=== PATIENT | female | born 1980 | race Caucasian/White ===

== ENCOUNTER 2017-05-18 08:30 | Inpatient (IN) | payer BC, MEDICAID ==
[2017-05-21] MEDS ORDERED: Rocuronium 50 MG/5 ML Vial ONE ×2 (08:29→13:51)
[2017-05-21] MEDS ORDERED: Neostigmine Methylsulfate 1 MG/ML 5 ML Syringe ONE (08:29)
[2017-05-21] MEDS ORDERED: Propofol 200 MG/20 ML SDV ONE (08:29)
[2017-05-21] MEDS ORDERED: Glycopyrrolate 0.2 MG/ML 5 ML MDV ONE (08:29)
[2017-05-21] MEDS ORDERED: Ondansetron 4 MG/2 ML SDV ONE (08:29)
[2017-05-21] MEDS ORDERED: Dexamethasone 4 MG/ML SDV ONE (08:29)
[2017-05-21] MEDS ORDERED: Succinylcholine 200 MG/10 ML MDV ONE (08:29)
[2017-05-21] MEDS ORDERED: Ketamine 500 MG/5 ML MDV IV ONE (09:00)
[2017-05-21] MEDS ORDERED: Ropivacaine 60 ML, Dexamethasone 8 MG, EPINEPHrine 0.4 MG, Sodium Chloride 0.9% 17.6 ML NERVRT SCH ×4 (09:00)
[2017-05-21] MEDS ORDERED: Lidocaine 2% 100 MG/5 ML Syringe IVPUSH ONE (09:00)
[2017-05-21] MEDS ORDERED: Scopolamine 1.5 MG Transdermal Patch TOP ONE (10:15)
[2017-05-21] MEDS ORDERED: Celecoxib 200 MG Cap PO ONE (10:15)
[2017-05-21] MEDS ORDERED: Gabapentin 300 MG Cap PO ONE (10:15)
[2017-05-21] MEDS ORDERED: Acetaminophen 500 MG Tab PO ONE (10:15)
[2017-05-21] MEDS: Dextrose 5%-Lactated Ringers 1,000 ML IV SCH ×2 (10:22→20:08)
[2017-05-21] MEDS ORDERED: Albuterol/Ipratropium 3.0-0.5 MG/3 ML Neb Soln NEB ONE (11:00)
--- NOTE | 2017-05-21 13:52 | PCM.CONS ---
H&P History of Present Illness - General Date of Service: 05/21/17 Source of Information: Patient, Family, Provider, RN Notes Reviewed History Limitations: Reports: No Limitations - History of Present Illness Initial Comments - Free Text/Narative: Ms. Perez is a 37-year-old woman who I been asked to see by Dr. Granger for further suggestions concerning management for DVT prophylaxis during the postoperative period. Ms. Perez is a known history of previous pulmonary embolism , management of which was complicated by allergic reaction to Enoxaparin. Since that episode she has been treated with warfarin. Warfarin has been held for the 2 days prior to surgery. Headache Pain Score (Numeric/FACES): 4 - Related Data Allergies/Adverse Reactions: Allergies Allergy/AdvReac Type Severity Reaction Status Date / Time enoxaparin Allergy Rash Verified 05/21/17 10:28 latex Allergy Hives Verified 06/07/13 16:15 mold Allergy Headache Verified 05/21/17 10:28 Penicillins Allergy Edema Verified 05/21/17 10:28 strawberry Allergy Hives Verified 05/21/17 10:28 Sulfa (Sulfonamide Allergy Itching Verified 05/21/17 10:28 Antibiotics) Home Medications: Home Meds Albuterol [Ventolin HFA] 2 puff INH Q6HR PRN 05/17/17 [History] Celecoxib [CeleBREX] 200 mg PO DAILY 05/17/17 [History] Furosemide 20 mg PO DAILY 05/17/17 [History] Omeprazole 20 mg PO BID 05/17/17 [History] Potassium Chloride 10 meq PO DAILY 05/17/17 [History] Venlafaxine [Effexor XR] 150 mg PO DAILY 05/17/17 [History] PEG 400/Propylene Glycol [Systane Lubricant] 1 drop EYEBOTH DAILY PRN 05/21/17 [ History] Warfarin [Coumadin] 10 mg PO DAILY 05/21/17 [History] Past Medical History HEENT History: Reports: Other (See Below) Other HEENT History: wears glasses Respiratory History: Reports: Asthma, PE, Sleep Apnea Gastrointestinal History: Reports: Colon Polyp, GERD, Hemorrhoids Musculoskeletal History: Reports: Arthritis, Back Pain, Chronic Neurological History: Reports: Headaches, Chronic, Seizure, Other (See Below) Other Neuro History: seizure after IV steroid Psychiatric History: Reports: ADHD, Anxiety, Depression, PTSD, Suicide Attempt Endocrine/Metabolic History: Reports: Obesity/BMI 30+, Other (See Below) Other Endocrine/Metabolic History: pre diabetic Hematologic History: Reports: Anemia Dermatologic History: Reports: Cellulitis - Past Surgical History GI Surgical History: Reports: Cholecystectomy, Colonoscopy, Hernia, Abdominal, Other (See Below) Other GI Surgeries/Procedures: bile leak after cholecystecomy Female Surgical History: Reports: Other (See Below) Other Female Surgeries/Procedures: left breast lump Social & Family History - Tobacco Use Smoking Status *Q: Former Smoker Years of Tobacco use: 25 Packs/Tins Daily: 0.2 Used Tobacco, but Quit: Yes Month Tobacco Last Used: May Second Hand Smoke Exposure: Yes - Caffeine Use Caffeine Use: Reports: None - Recreational Drug Use Recreational Drug Use: No H&P Review of Systems - Review of Systems: Review Of Systems: See Below General: Denies: Fever, Chills, Weakness Pulmonary: Reports: No Symptoms Cardiovascular: Reports: Dyspnea on Exertion, Edema. Denies: Chest Pain, Palpitations, Orthopnea, PND, Lightheadedness Gastrointestinal: Reports: No Symptoms Genitourinary: Reports: No Symptoms Musculoskeletal: Reports: No Symptoms Skin: Reports: No Symptoms Exam - Exam Exam: See Below - Vital Signs Vital Signs: Last Vital Signs Temp 96.8 F 05/21/17 10:24 Pulse 71 05/21/17 10:24 Resp 20 05/21/17 10:24 BP 95/55 L 05/21/17 10:24 Pulse Ox 93 L 05/21/17 10:24 Weight: 494 lb 9.6 oz - Exam General: Alert, Oriented, Cooperative Neck: Supple, Trachea Midline, +2 Carotid Pulse wo Bruit Lungs: Clear to Auscultation, Normal Respiratory Effort Cardiovascular: Regular Rate, Regular Rhythm, Normal S1, Normal S2. No: Systolic Murmur, Diastolic Murmur GI/Abdominal Exam: Normal Bowel Sounds, Soft, Non-Tender, No Organomegaly, No Distention Extremities: Non-Tender, Pedal Edema Skin: Warm, Dry, Intact - Patient Data Lab Results Last 24 hrs: Laboratory Results - last 24 hr 05/21/17 05/21/17 Range/Units 10:00 10:00 PT 12.7 H (9.5-12.0) sec INR 1.18 (0.80-1.20) Blood Type A POSITIVE Gel Antibody Screen Negative Consult PN Assessment/Plan Procedures: Procedures BLOOD TYPING SEROLOGIC ABO (05/29/16) BLOOD TYPING SEROLOGIC RH(D) (05/29/16) CT HEAD/BRAIN W/O DYE (04/09/13) EMERGENCY DEPT VISIT (06/07/13) EMERGENCY DEPT VISIT (06/07/13) PROTHROMBIN TIME (06/07/13) RBC ANTIBODY SCREEN (05/29/16) ROUTINE VENIPUNCTURE (05/29/16) Problem List Initiated/Reviewed/Updated: Yes Plan: ASSESSMENT AND RECOMMENDATIONS GASTRIC BYPASS SURGERY FOR MORBID OBESITY -Postoperative care per Dr. Granger HISTORY OF PULMONARY EMBOLI-management of which was complicated by allergic reaction to Enoxaparin which resulted in a localized as well as somewhat generalized rash. -Resume warfarin today -Hold on use of Enoxaparin and heparin because of previous allergy -Fondaparinux 10 mg subcutaneous daily starting tomorrow, hopefully this is chemically different enough so there will be no cross-reaction allergy -Monitor closely for any evidence of allergic reaction or rash Requesting Provider: TORRES Date Consult Requested: 05/21/17 Reason for Consult: History of pulmonary emboli, management of anticoagulation Patient History Reviewed: Yes Notified Requestor: Yes
[2017-05-21] MEDS: cefOXitin 2 GM in Sodium Chloride 0.9% 50 ML IV ONE ×2 (14:02→20:09)
[2017-05-21] MEDS: cefOXitin 2 GM Vial ONE ×3 (14:27→17:10)
[2017-05-21] MEDS ORDERED: Lactated Ringers 1,000 ML ONE ×2 (14:30)
[2017-05-21] MEDS ORDERED: fentaNYL 250 MCG/5 ML SDV ONE (15:13)
[2017-05-21] MEDS ORDERED: Sodium Chloride 0.9% 10 ML ONE (15:30)
[2017-05-21] MEDS ORDERED: Meropenem 500 MG SDV ONE (15:30)
[2017-05-21] MEDS ORDERED: Sugammadex Sodium 200 MG/2 ML VIAL ONE (17:47)
[2017-05-21] MEDS ORDERED: Dextrose 5%-Lactated Ringers 1,000 ML IV SCH (20:00)
[2017-05-21] MEDS ORDERED: MVI, Adult with Vitamin K 10 ML, Chromium/Copper/Mang/Selen/Zn 1 ML, Thiamine 200 MG in... IV SCH ×4 (20:00)
[2017-05-21] MEDS ORDERED: hydrOXYzine HCl 100 MG/2 ML SDV IM PRN (20:06)
[2017-05-21] MEDS: Lidocaine 0.4%/D5W 2 GM/500 ML BAG IV SCH (20:08)
[2017-05-21] MEDS ORDERED: Labetalol 20 MG/4 ML Syringe IVPUSH PRN (20:12)
[2017-05-21] MEDS: Ondansetron 4 MG/2 ML SDV IVPUSH PRN (20:14)
[2017-05-21] MEDS ORDERED: diphenhydrAMINE 50 MG/ML SDV IVPUSH PRN (20:15)
[2017-05-21] MEDS ORDERED: Gabapentin 250 MG/5 ML Solution ML 470 ML Bottle PO SCH (21:00)
[2017-05-21] MEDS: Pantoprazole 40 MG Vial IV SCH (21:50)
[2017-05-21] MEDS ORDERED: Acetaminophen Soln 650 MG/20.3 ML UD Cup ONE (21:52)
[2017-05-21] MEDS ORDERED: Albuterol/Ipratropium 3.0-0.5 MG/3 ML Neb Soln INH PRN (22:25)
[2017-05-21] MEDS: Acetaminophen Soln 160 MG/5 ML UD Cup PO SCH (22:27)
[2017-05-21] MEDS: cefOXitin 2 GM in Sodium Chloride 0.9% 50 ML IV SCH (22:41)
[2017-05-21] MEDS: Albuterol/Ipratropium 3.0-0.5 MG/3 ML Neb Soln INH SCH (22:41)
[2017-05-22] MEDS: cefOXitin 2 GM in Sodium Chloride 0.9% 50 ML IV SCH ×4 (01:30→22:00)
[2017-05-22] MEDS: Acetaminophen Soln 160 MG/5 ML UD Cup PO SCH ×2 (01:33→09:10)
[2017-05-22] MEDS ORDERED: Metoclopramide 10 MG/2 ML SDV IV SCH (02:00)
[2017-05-22] MEDS: Ondansetron 4 MG/2 ML SDV IVPUSH PRN ×2 (02:12→07:39)
[2017-05-22] MEDS: Lidocaine 0.4%/D5W 2 GM/500 ML BAG IV SCH (06:06)
[2017-05-22] MEDS: Albuterol/Ipratropium 3.0-0.5 MG/3 ML Neb Soln INH SCH ×4 (07:02→22:22)
[2017-05-22] MEDS ORDERED: Albuterol/Ipratropium 3.0-0.5 MG/3 ML Neb Soln INH PRN (07:33)
[2017-05-22] MEDS ORDERED: Cyanocobalamin (Vitamin B12) 1,000 MCG/ML SDV IM ONE (08:00)
[2017-05-22] MEDS ORDERED: Iohexol 647 MG/ML 50 ML SDV IVPUSH PRN (08:11)
[2017-05-22] MEDS ORDERED: Hypromellose 0.4% Ophth Soln 15 ML Bottle EYEBOTH PRN (08:16)
[2017-05-22] MEDS: Metoclopramide 10 MG/2 ML SDV IV SCH ×3 (08:45→22:01)
[2017-05-22] MEDS: Gabapentin 250 MG/5 ML Solution ML 470 ML Bottle PO SCH ×3 (09:00→22:22)
[2017-05-22] MEDS: Dextrose 5%-Lactated Ringers 1,000 ML IV SCH (09:06)
[2017-05-22] MEDS: Celecoxib 200 MG Cap PO SCH (09:10)
[2017-05-22] MEDS: Venlafaxine 75 MG Cap.ER PO SCH (09:11)
[2017-05-22] MEDS: Furosemide 20 MG Tab PO SCH (09:11)
--- NOTE | 2017-05-22 09:28 | CR ---
Drain within the left upper quadrant. Air-fluid levels within small bowel. No gross evidence for leak age status post María-en-Y.
[2017-05-22] MEDS: Acetaminophen Soln 650 MG/20.3 ML UD Cup PO SCH ×2 (14:22→22:01)
[2017-05-22] MEDS: HYDROmorphone 1 MG/ML Syringe IVPUSH PRN ×2 (14:22→20:45)
--- NOTE | 2017-05-22 14:35 | PCM.CONSN ---
- General Info Date of Service: 05/22/17 Subjective Update: Ms. Perez is been stable since surgery yesterday, although when seen this morning was very sleepy and lethargic. Fondaparinux has been started today for overlap therapy with warfarin. - Patient Data Vitals - Most Recent: Last Vital Signs Temp 99.8 F 05/22/17 11:00 Pulse 86 05/22/17 11:00 Resp 18 05/22/17 11:00 BP 156/79 H 05/22/17 11:00 Pulse Ox 94 L 05/22/17 11:00 Weight - Most Recent: 494 lb 9.6 oz I&O - Last 24 Hours: Intake & Output 05/21/17 05/22/17 05/22/17 22:59 06:59 14:59 Intake Total 180 2022 170 Output Total 40 2565 2075 Balance 140 -542 -1905 Lab Results Last 24 Hours: Laboratory Results - last 24 hr 05/22/17 05/22/17 Range/Units 04:35 04:35 WBC 15.7 H (4.5-11.0) K/uL RBC 4.77 (3.30-5.50) M/uL Hgb 11.7 L (12.0-15.0) g/dL Hct 38.3 (36.0-48.0) % MCV 80 (80-98) fL MCH 25 L (27-31) pg MCHC 31 L (32-36) % Plt Count 242 (150-400) K/uL Sodium 138 L (140-148) mmol/L Potassium 4.8 (3.6-5.2) mmol/L Chloride 103 (100-108) mmol/L Carbon Dioxide 28 (21-32) mmol/L Anion Gap 11.8 (5.0-14.0) mmol/L BUN 17 (7-18) mg/dL Creatinine 1.2 H (0.6-1.0) mg/dL Est Cr Clr Drug Dosing 66.20 mL/min Estimated GFR (MDRD) 50 L (>60) Glucose 154 H (74-106) mg/dL Calcium 8.6 (8.5-10.1) mg/dL Phosphorus 2.8 (2.5-4.9) mg/dL Magnesium 1.9 (1.8-2.4) mg/dL Total Bilirubin 0.6 (0.2-1.0) mg/dL AST 674 H (15-37) U/L ALT 517 H (12-78) U/L Alkaline Phosphatase 79 (46-116) U/L NT-Pro-B Natriuret Pep 299 H (5-125) pg/mL Total Protein 7.1 (6.4-8.2) g/dL Albumin 3.1 L (3.4-5.0) g/dL Globulin 4.0 H (2.3-3.5) g/dL Albumin/Globulin Ratio 0.8 L (1.2-2.2) Med Orders - Current: Current Medications Acetaminophen (Tylenol) 650 mg PO Q6H PENDING SALE TO [facility] Last Admin: 05/22/17 14:22 Dose: 650 mg Albuterol/Ipratropium (Duoneb 3.0-0.5 Mg/3 Ml) 3 ml INH QIDRT PENDING SALE TO [facility] Last Admin: 05/22/17 10:58 Dose: 3 ml Albuterol/Ipratropium (Duoneb 3.0-0.5 Mg/3 Ml) 3 ml INH ASDIRECTED PRN PRN Reason: Shortness of Breath Artificial Tears (Natural Balance Tears) 0 ml EYEBOTH ASDIRECTED PRN PRN Reason: DRY EYES Celecoxib (Celebrex) 200 mg PO DAILY PENDING SALE TO [facility] Last Admin: 05/22/17 09:10 Dose: 200 mg Diphenhydramine HCl (Benadryl) 25 - 50 mg IVPUSH Q4H PRN PRN Reason: ITCHING Fondaparinux (Arixtra) 10 mg SUBCUT Q24H PENDING SALE TO [facility] Last Admin: 05/22/17 12:51 Dose: 10 mg Furosemide (Lasix) 20 mg PO DAILY PENDING SALE TO [facility] Last Admin: 05/22/17 09:11 Dose: 20 mg Gabapentin (Neurontin) 300 mg PO TID PENDING SALE TO [facility] Last Admin: 05/22/17 14:22 Dose: 300 mg Hydromorphone HCl (Dilaudid) 1 mg IVPUSH Q1H PRN PRN Reason: Pain Last Admin: 05/22/17 14:22 Dose: 1 mg Hydroxyzine HCl (Vistaril) 75 - 100 mg IM Q4H PRN PRN Reason: UNCONTROLLED PAIN Last Admin: 05/21/17 20:22 Dose: 100 mg Lidocaine HCl/Dextrose (Lidocaine 2 Gm/D5w 500 Ml) 2 gm in 500 mls @ 30 mls/hr IV .[id number] PENDING SALE TO [facility] PRN Reason: 2 MG/MIN Stop: 05/22/17 18:00 Last Admin: 05/22/17 06:06 Dose: 2 mg/min, 30 mls/hr Cefoxitin Sodium 2 gm/ Sodium (Chloride) 50 mls @ 100 mls/hr IV Q6H PENDING SALE TO [facility] Stop: 05/23/17 14:29 Last Admin: 05/22/17 14:22 Dose: 100 mls/hr Dextrose/Lactated Ringer's (Dextrose 5%-Lactated Ringers) 1,000 mls @ 125 mls/ hr IV ASDIRECTED PENDING SALE TO [facility] Last Admin: 05/22/17 09:06 Dose: 125 mls/hr Multivitamins/Minerals 10 ml/Chromium/Copper/Manganese/Seleni/Zn 1 ml/ Thiamine HCl 200 mg/ Dextrose/Lactated Ringer's 1,013 mls @ 125 mls/hr IV DAILY@1600 PENDING SALE TO [facility] Labetalol HCl (Normodyne) 5 - 15 mg IVPUSH Q1H PRN PRN Reason: SBP>160, DBP>95, Last Admin: 05/21/17 21:58 Dose: 10 mg Metoclopramide HCl (Reglan) 10 mg IV Q6H PENDING SALE TO [facility] Last Admin: 05/22/17 08:45 Dose: 10 mg Miscellaneous Information (Remove Patch) 1 ea TRDERM Q72H PENDING SALE TO [facility] Ondansetron HCl (Zofran) 4 mg IVPUSH Q4H PRN PRN Reason: NAUSEA Last Admin: 05/22/17 07:39 Dose: 4 mg Pantoprazole Sodium (Protonix Iv) 40 mg IV Q24H PENDING SALE TO [facility] Last Admin: 05/21/17 21:50 Dose: 40 mg Venlafaxine HCl (Effexor Xr) 150 mg PO DAILY PENDING SALE TO [facility] Last Admin: 05/22/17 09:11 Dose: 150 mg Discontinued Medications Acetaminophen (Tylenol Extra Strength) 1,000 mg PO ONETIME ONE Stop: 05/21/17 10:16 Last Admin: 05/21/17 10:17 Dose: 1,000 mg Acetaminophen (Tylenol Solution) 650 mg PO Q6H PENDING SALE TO [facility] Last Admin: 05/22/17 09:10 Dose: 650 mg Acetaminophen (Tylenol) Confirm Administered Dose 650 mg .ROUTE .STK-MED ONE Stop: 05/21/17 21:53 Last Admin: 05/21/17 22:42 Dose: Not Given Albuterol/Ipratropium (Duoneb 3.0-0.5 Mg/3 Ml) 3 ml NEB ONETIME ONE Stop: 05/21/17 11:01 Last Admin: 05/21/17 12:09 Dose: 3 ml Cefoxitin Sodium (Mefoxin) Confirm Administered Dose 2 gm .ROUTE .STK-MED ONE Stop: 05/21/17 11:15 Last Admin: 05/21/17 17:10 Dose: 2 gm Celecoxib (Celebrex) 200 mg PO ONETIME ONE Stop: 05/21/17 10:16 Last Admin: 05/21/17 10:16 Dose: 200 mg Ropivacaine 60 ml/Dexamethasone 8 mg/Epinephrine HCl 0.4 mg/ Sodium Chloride 17.6 ml 0 ml NERVRT ASDIRECTED TUCKER Last Admin: 05/21/17 14:03 Dose: 80 syringe Cyanocobalamin (Vitamin B12) 1,000 mcg IM ONETIME ONE Stop: 05/22/17 08:01 Last Admin: 05/22/17 09:10 Dose: 1,000 mcg Dexamethasone (Dexamethasone) Confirm Administered Dose 4 mg .ROUTE .STK-MED ONE Stop: 05/21/17 08:30 Fentanyl (Sublimaze) Confirm Administered Dose 250 mcg .ROUTE .STK-MED ONE Stop: 05/21/17 15:14 Fentanyl Citrate (Fentanyl) Confirm Administered Dose 500 mcg .ROUTE .STK-MED ONE Stop: 05/21/17 08:30 Gabapentin (Neurontin) 300 mg PO ONETIME ONE Stop: 05/21/17 10:16 Last Admin: 05/21/17 10:16 Dose: 300 mg Gabapentin (Neurontin) 300 mg PO TID PENDING SALE TO [facility] Last Admin: 05/21/17 22:41 Dose: 300 mg Glycopyrrolate (Robinul) Confirm Administered Dose 1 mg .ROUTE .STK-MED ONE Stop: 05/21/17 08:30 Ketamine HCl 100 mg/ Sodium (Chloride) 100 mls @ 13.8 mls/hr IV ASDIRECTED TUCKER PRN Reason: 5 MCG/KG/MIN Dextrose/Lactated Ringer's (Dextrose 5%-Lactated Ringers) 1,000 mls @ 100 mls/ hr IV ASDIRECTED PENDING SALE TO [facility] Last Admin: 05/21/17 20:08 Dose: 100 mls/hr Cefoxitin Sodium 2 gm/ Sodium (Chloride) 50 mls @ 100 mls/hr IV ONETIME ONE Stop: 05/21/17 11:59 Last Admin: 05/21/17 20:09 Dose: Not Given Lactated Ringer's (Ringers, Lactated) Confirm Administered Dose 1,000 mls @ as directed .ROUTE .STK-MED ONE Stop: 05/21/17 14:31 Lactated Ringer's (Ringers, Lactated) Confirm Administered Dose 1,000 mls @ as directed .ROUTE .STK-MED ONE Stop: 05/21/17 14:31 Sodium Chloride (Normal Saline) Confirm Administered Dose 10 mls @ as directed .ROUTE .STK-MED ONE Stop: 05/21/17 15:31 Dextrose/Lactated Ringer's (Dextrose 5%-Lactated Ringers) 1,000 mls @ 200 mls/ hr IV ASDIRECTED PENDING SALE TO [facility] Last Admin: 05/22/17 01:30 Dose: 200 mls/hr Multivitamins/Minerals 10 ml/Chromium/Copper/Manganese/Seleni/Zn 1 ml/ Thiamine HCl 200 mg/ Dextrose/Lactated Ringer's 1,013 mls @ 200 mls/hr IV ASDIRECTED PENDING SALE TO [facility] Multivitamins/Minerals 10 ml/Chromium/Copper/Manganese/Seleni/Zn 1 ml/ Thiamine HCl 200 mg/ Dextrose/Lactated Ringer's 1,013 mls @ 200 mls/hr IV DAILY@1600 PENDING SALE TO [facility] Iohexol (Omnipaque-300) 50 ml IVPUSH . DIRECTED PRN PRN Reason: RADIOLOGY EXAM Stop: 05/22/17 10:00 Last Admin: 05/22/17 08:28 Dose: 50 ml Ketamine HCl (Ketalar) 23 mg IV ONETIME ONE Stop: 05/21/17 09:01 Last Admin: 05/21/17 20:42 Dose: Not Given Lidocaine HCl (Xylocaine 2%) 180 mg IVPUSH ONETIME ONE Stop: 05/21/17 09:01 Last Admin: 05/21/17 20:42 Dose: Not Given Meropenem (Merrem) Confirm Administered Dose 500 mg .ROUTE .STK-MED ONE Stop: 05/21/17 15:31 Last Admin: 05/21/17 17:10 Dose: 500 mg Neostigmine Methylsulfate (Neostigmine) Confirm Administered Dose 5 mg .ROUTE .STK-MED ONE Stop: 05/21/17 08:30 Ondansetron HCl (Zofran) Confirm Administered Dose 4 mg .ROUTE .STK-MED ONE Stop: 05/21/17 08:30 Propofol (Diprivan 20 Ml) Confirm Administered Dose 200 mg .ROUTE .STK-MED ONE Stop: 05/21/17 08:30 Rocuronium [place] (Zemuron) Confirm Administered Dose 50 mg .ROUTE .STK-MED ONE Stop: 05/21/17 08:30 Rocuronium [place] (Zemuron) Confirm Administered Dose 50 mg .ROUTE .STK-MED ONE Stop: 05/21/17 13:52 Scopolamine (Transderm-Scop) 1.5 mg TOP ONETIME ONE Stop: 05/21/17 10:16 Last Admin: 05/21/17 10:15 Dose: 1.5 mg Sodium Chloride (Normal Saline) 500 ml IRR .STK-MED ONE Stop: 05/21/17 17:11 Last Admin: 05/21/17 17:10 Dose: 500 ml Succinylcholine Chloride (Quelicin) Confirm Administered Dose 200 mg .ROUTE .STK -MED ONE Stop: 05/21/17 08:30 Warfarin Sodium 10 mg/ (Warfarin Sodium 2 mg) 12 mg PO ONETIME ONE Stop: 05/22/17 10:01 Last Admin: 05/22/17 09:12 Dose: 12 mg - Exam General: Sedated, Lethargic Lungs: Clear to Auscultation, Normal Respiratory Effort Cardiovascular: Regular Rate, Regular Rhythm, No Murmurs Extremities: Non-Tender, Pedal Edema Skin: Warm, Dry Consult PN Assessment/Plan Procedures: Procedures BLOOD TYPING SEROLOGIC ABO (05/29/16) BLOOD TYPING SEROLOGIC RH(D) (05/29/16) CT HEAD/BRAIN W/O DYE (04/09/13) EMERGENCY DEPT VISIT (06/07/13) EMERGENCY DEPT VISIT (06/07/13) PROTHROMBIN TIME (06/07/13) RBC ANTIBODY SCREEN (05/29/16) ROUTINE VENIPUNCTURE (05/29/16) Problem List Initiated/Reviewed/Updated: Yes My Orders Last 24 Hours: My Active Orders 05/22/17 12:00 Fondaparinux [Arixtra] 10 mg SUBCUT Q24H Plan: ASSESSMENT AND RECOMMENDATIONS GASTRIC BYPASS SURGERY FOR MORBID OBESITY -Postoperative care per Dr. Granger HISTORY OF PULMONARY EMBOLI-management of which was complicated by allergic reaction to Enoxaparin which resulted in a localized as well as somewhat generalized rash. -Continue warfarin -Daily INR -Hold on use of Enoxaparin and heparin because of previous allergy -Fondaparinux 10 mg subcutaneous daily, plan for 5 days of overlap therapy and at least 2 days after INR is within therapeutic range, which ever is longer -Monitor closely for any evidence of allergic reaction or rash -Venous Doppler studies of both lower extremities in a.m.
[2017-05-22] MEDS ORDERED: MVI, Adult with Vitamin K 10 ML, Chromium/Copper/Mang/Selen/Zn 1 ML, Thiamine 200 MG in... IV SCH ×8 (16:00)
--- NOTE | 2017-05-22 17:20 | PN ---
DATE OF SERVICE: 05/22/2017 The patient has been afebrile with stable vital signs, but she had some nausea, and this appears to have cleared. She did not get her upper GI x-ray, as she was felt to be a little bit too unsteady to safely have that done during the night, so this will be done early this morning. She was tolerating liquid diet reasonably well, and her output has been satisfactory. Labs show no significant problems. The plan will be to restart the anticoagulation today. We will give her 12 mg of Coumadin today. She has had little in the way of evidence of bleeding or problems in that regard, so I think it will be ok for Dr. Low to start the fondaparinux, as discussed yesterday. Otherwise, we will restart her other pertinent medications. Pain control at this point appears to be adequate with the Celebrex and Tylenol. We will obtain bilateral duplex scans tomorrow morning to rule out any ongoing DVT as well. Demetris Granger MD /[id number]
[2017-05-22] MEDS: Pantoprazole 40 MG Vial IV SCH (22:01)
[2017-05-23] MEDS: Dextrose 5%-Lactated Ringers 1,000 ML IV SCH (01:49)
[2017-05-23] MEDS: cefOXitin 2 GM in Sodium Chloride 0.9% 50 ML IV SCH ×2 (02:51→08:49)
[2017-05-23] MEDS: Acetaminophen Soln 650 MG/20.3 ML UD Cup PO SCH ×4 (03:08→20:13)
[2017-05-23] MEDS: Metoclopramide 10 MG/2 ML SDV IV SCH ×2 (03:37→08:49)
[2017-05-23] MEDS: Albuterol/Ipratropium 3.0-0.5 MG/3 ML Neb Soln INH SCH ×4 (08:02→20:13)
[2017-05-23] MEDS: Celecoxib 200 MG Cap PO SCH (08:50)
[2017-05-23] MEDS: Venlafaxine 75 MG Cap.ER PO SCH (08:50)
[2017-05-23] MEDS: Furosemide 20 MG Tab PO SCH (08:51)
--- NOTE | 2017-05-23 08:51 | PN ---
DATE OF SERVICE: 05/23/2017 SUBJECTIVE: Becky is postop day #2. She is on fondaparinux (Arixtra) because of allergic reaction to Lovenox/heparin. She did have a DEXA scan this morning, and when she was helped back into bed for the DEXA scan, her IV was pulled out. Her oral intake yesterday was 890. She is on step-1 with milk. Pain is controlled. She is not passing gas yet. INR is 1.35 and PT is 14.6. OBJECTIVE: GENERAL: Becky Perez is a 37-year-old female. VITAL SIGNS: TPR is 98.1, 79, 12, and blood pressure 155/67. HEENT: Negative. NECK: Supple. HEART: Regular rate and rhythm. LUNGS: Clear. ABDOMEN: Dressings dry and intact. Aquasol dressing is on. EXTREMITIES: Difficult to evaluate. She might have trace peripheral edema. ASSESSMENT: Laparoscopic turned to laparotomy with María-en-Y gastric bypass surgery, liver biopsy, and small bowel resection for morbid obesity and extreme immobility of abdominal wall and intraabdominal adhesions, hepatomegaly, immobile small bowel mesentery requiring small bowel resection to allow gastrojejunostomy. Date of surgery, 05/21/2017. PLAN: 1. To check with insurance company in regard to insurance coverage of home Arixtra. 2. Call Demetris Granger MD, with results of INR and PT. 3. Continue step-1 with milk gastric bypass diet. 4. Encourage oral intake. 5. We will leave IV out with a goal of 500 mL by noon of oral fluids. 6. Good pulmonary toilet. 7. We will evaluate p.r.n. or in a.m. 8. Plan discharge in a.m. Marybeth Ha PA-C /[id number]
[2017-05-23] MEDS: Gabapentin 250 MG/5 ML Solution ML 470 ML Bottle PO SCH ×3 (08:54→20:13)
--- NOTE | 2017-05-23 09:02 | US ---
VL Duplex Lwr Ext Veins Comp INDICATION: r/O DVT TECHNIQUE: The deep venous system of both legs imaged, including the common femoral, deep femoral, rivera perficial femoral, popliteal, and where visualized, calf veins. Imaging included duplex, compressio n, and augmentation. COMPARISON: None FINDINGS: Study limited due to patient body habitus. There is no evidence of deep venous thrombosis. Peroneal veins not well visualized. Other incidental findings: None. IMPRESSION: No evidence of deep venous thrombosis. Peroneal veins not well visualized, as discussed a tripp.
[2017-05-23] MEDS ORDERED: Warfarin 5 MG Tab PO ONE (10:00)
--- NOTE | 2017-05-23 17:32 | PCM.CONSN ---
- General Info Date of Service: 05/23/17 Subjective Update: Ms. Perez has done well over the past 24 hours, this morning she is more alert and interactive. No significant increase in peripheral edema, shortness of breath, or pleuritic chest pain. Venous Doppler studies of both lower extremities today shows no evidence of deep vein thrombosis. Appears to be tolerating the fondaparinux without rash or evidence of allergic reaction. - Patient Data Vitals - Most Recent: Last Vital Signs Temp 97.7 F 05/23/17 15:20 Pulse 77 05/23/17 15:20 Resp 16 05/23/17 15:20 BP 144/73 H 05/23/17 15:20 Pulse Ox 92 L 05/23/17 15:20 Weight - Most Recent: 494 lb 9.6 oz I&O - Last 24 Hours: Intake & Output 05/23/17 05/23/17 05/23/17 06:59 14:59 22:59 Intake Total 1835 1203 Output Total 570 1100 25 Balance 1265 103 -25 Lab Results Last 24 Hours: Laboratory Results - last 24 hr 05/23/17 Range/Units 07:00 PT 14.6 H (9.5-12.0) sec INR 1.35 H (0.80-1.20) Med Orders - Current: Current Medications Acetaminophen (Tylenol) 650 mg PO Q6H [facility] Last Admin: 05/23/17 13:33 Dose: 650 mg Albuterol/Ipratropium (Duoneb 3.0-0.5 Mg/3 Ml) 3 ml INH QIDRT [facility] Last Admin: 05/23/17 14:45 Dose: 3 ml Albuterol/Ipratropium (Duoneb 3.0-0.5 Mg/3 Ml) 3 ml INH ASDIRECTED PRN PRN Reason: Shortness of Breath Artificial Tears (Natural Balance Tears) 0 ml EYEBOTH ASDIRECTED PRN PRN Reason: DRY EYES Celecoxib (Celebrex) 200 mg PO DAILY [facility] Last Admin: 05/23/17 08:50 Dose: 200 mg Fondaparinux (Arixtra) 10 mg SUBCUT Q24H [facility] Last Admin: 05/23/17 11:58 Dose: 10 mg Furosemide (Lasix) 20 mg PO DAILY [facility] Last Admin: 05/23/17 08:51 Dose: 20 mg Gabapentin (Neurontin) 300 mg PO TID [facility] Last Admin: 05/23/17 13:36 Dose: 300 mg Hydroxyzine HCl (Vistaril) 75 - 100 mg IM Q4H PRN PRN Reason: UNCONTROLLED PAIN Last Admin: 05/21/17 20:22 Dose: 100 mg Miscellaneous Information (Remove Patch) 1 ea TRDERM Q72H [facility] Venlafaxine HCl (Effexor Xr) 150 mg PO DAILY [facility] Last Admin: 05/23/17 08:50 Dose: 150 mg Discontinued Medications Acetaminophen (Tylenol Extra Strength) 1,000 mg PO ONETIME ONE Stop: 05/21/17 10:16 Last Admin: 05/21/17 10:17 Dose: 1,000 mg Acetaminophen (Tylenol Solution) 650 mg PO Q6H [facility] Last Admin: 05/22/17 09:10 Dose: 650 mg Acetaminophen (Tylenol) Confirm Administered Dose 650 mg .ROUTE .STK-MED ONE Stop: 05/21/17 21:53 Last Admin: 05/21/17 22:42 Dose: Not Given Albuterol/Ipratropium (Duoneb 3.0-0.5 Mg/3 Ml) 3 ml NEB ONETIME ONE Stop: 05/21/17 11:01 Last Admin: 05/21/17 12:09 Dose: 3 ml Cefoxitin Sodium (Mefoxin) Confirm Administered Dose 2 gm .ROUTE .STK-MED ONE Stop: 05/21/17 11:15 Last Admin: 05/21/17 17:10 Dose: 2 gm Celecoxib (Celebrex) 200 mg PO ONETIME ONE Stop: 05/21/17 10:16 Last Admin: 05/21/17 10:16 Dose: 200 mg Ropivacaine 60 ml/Dexamethasone 8 mg/Epinephrine HCl 0.4 mg/ Sodium Chloride 17.6 ml 0 ml NERVRT ASDIRECTED [facility] Last Admin: 05/21/17 14:03 Dose: 80 syringe Cyanocobalamin (Vitamin B12) 1,000 mcg IM ONETIME ONE Stop: 05/22/17 08:01 Last Admin: 05/22/17 09:10 Dose: 1,000 mcg Dexamethasone (Dexamethasone) Confirm Administered Dose 4 mg .ROUTE .STK-MED ONE Stop: 05/21/17 08:30 Diphenhydramine HCl (Benadryl) 25 - 50 mg IVPUSH Q4H PRN PRN Reason: ITCHING Fentanyl (Sublimaze) Confirm Administered Dose 250 mcg .ROUTE .ST-MED ONE Stop: 05/21/17 15:14 Fentanyl Citrate (Fentanyl) Confirm Administered Dose 500 mcg .ROUTE .[facility] ONE Stop: 05/21/17 08:30 Gabapentin (Neurontin) 300 mg PO ONETIME ONE Stop: 05/21/17 10:16 Last Admin: 05/21/17 10:16 Dose: 300 mg Gabapentin (Neurontin) 300 mg PO TID [facility] Last Admin: 05/21/17 22:41 Dose: 300 mg Glycopyrrolate (Robinul) Confirm Administered Dose 1 mg .ROUTE .[facility] ONE Stop: 05/21/17 08:30 Hydromorphone HCl (Dilaudid) 1 mg IVPUSH Q1H PRN PRN Reason: Pain Last Admin: 05/22/17 20:45 Dose: 1 mg Lidocaine HCl/Dextrose (Lidocaine 2 Gm/D5w 500 Ml) 2 gm in 500 mls @ 30 mls/hr IV .[id number] [facility] PRN Reason: 2 MG/MIN Stop: 05/22/17 18:00 Last Admin: 05/22/17 06:06 Dose: 2 mg/min, 30 mls/hr Ketamine HCl 100 mg/ Sodium (Chloride) 100 mls @ 13.8 mls/hr IV ASDIRECTED [facility] PRN Reason: 5 MCG/KG/MIN Dextrose/Lactated Ringer's (Dextrose 5%-Lactated Ringers) 1,000 mls @ 100 mls/ hr IV ASDIRECTED [facility] Last Admin: 05/21/17 20:08 Dose: 100 mls/hr Cefoxitin Sodium 2 gm/ Sodium (Chloride) 50 mls @ 100 mls/hr IV ONETIME ONE Stop: 05/21/17 11:59 Last Admin: 05/21/17 20:09 Dose: Not Given Lactated Ringer's (Ringers, Lactated) Confirm Administered Dose 1,000 mls @ as directed .ROUTE .[facility] ONE Stop: 05/21/17 14:31 Lactated Ringer's (Ringers, Lactated) Confirm Administered Dose 1,000 mls @ as directed .ROUTE .[facility] ONE Stop: 05/21/17 14:31 Sodium Chloride (Normal Saline) Confirm Administered Dose 10 mls @ as directed .ROUTE .STK-MED ONE Stop: 05/21/17 15:31 Dextrose/Lactated Ringer's (Dextrose 5%-Lactated Ringers) 1,000 mls @ 200 mls/ hr IV ASDIRECTED [facility] Last Admin: 05/22/17 01:30 Dose: 200 mls/hr Multivitamins/Minerals 10 ml/Chromium/Copper/Manganese/Seleni/Zn 1 ml/ Thiamine HCl 200 mg/ Dextrose/Lactated Ringer's 1,013 mls @ 200 mls/hr IV ASDIRECTED [facility] Cefoxitin Sodium 2 gm/ Sodium (Chloride) 50 mls @ 100 mls/hr IV Q6H [facility] Stop: 05/23/17 14:29 Last Admin: 05/23/17 08:49 Dose: Not Given Multivitamins/Minerals 10 ml/Chromium/Copper/Manganese/Seleni/Zn 1 ml/ Thiamine HCl 200 mg/ Dextrose/Lactated Ringer's 1,013 mls @ 200 mls/hr IV DAILY@1600 [facility] Dextrose/Lactated Ringer's (Dextrose 5%-Lactated Ringers) 1,000 mls @ 125 mls/ hr IV ASDIRECTED [facility] Last Admin: 05/23/17 01:49 Dose: 125 mls/hr Multivitamins/Minerals 10 ml/Chromium/Copper/Manganese/Seleni/Zn 1 ml/ Thiamine HCl 200 mg/ Dextrose/Lactated Ringer's 1,013 mls @ 125 mls/hr IV DAILY@1600 [facility] Last Admin: 05/22/17 15:58 Dose: 125 mls/hr Iohexol (Omnipaque-300) 50 ml IVPUSH . DIRECTED PRN PRN Reason: RADIOLOGY EXAM Stop: 05/22/17 10:00 Last Admin: 05/22/17 08:28 Dose: 50 ml Ketamine HCl (Ketalar) 23 mg IV ONETIME ONE Stop: 05/21/17 09:01 Last Admin: 05/21/17 20:42 Dose: Not Given Labetalol HCl (Normodyne) 5 - 15 mg IVPUSH Q1H PRN PRN Reason: SBP>160, DBP>95, Last Admin: 05/21/17 21:58 Dose: 10 mg Lidocaine HCl (Xylocaine 2%) 180 mg IVPUSH ONETIME ONE Stop: 05/21/17 09:01 Last Admin: 05/21/17 20:42 Dose: Not Given Meropenem (Merrem) Confirm Administered Dose 500 mg .ROUTE .STK-MED ONE Stop: 05/21/17 15:31 Last Admin: 05/21/17 17:10 Dose: 500 mg Metoclopramide HCl (Reglan) 10 mg IV Q6H [facility] Last Admin: 05/23/17 08:49 Dose: Not Given Neostigmine Methylsulfate (Neostigmine) Confirm Administered Dose 5 mg .ROUTE .STK-MED ONE Stop: 05/21/17 08:30 Ondansetron HCl (Zofran) Confirm Administered Dose 4 mg .ROUTE .STK-MED ONE Stop: 05/21/17 08:30 Ondansetron HCl (Zofran) 4 mg IVPUSH Q4H PRN PRN Reason: NAUSEA Last Admin: 05/22/17 07:39 Dose: 4 mg Pantoprazole Sodium (Protonix Iv) 40 mg IV Q24H [facility] Last Admin: 05/22/17 22:01 Dose: 40 mg Propofol (Diprivan 20 Ml) Confirm Administered Dose 200 mg .ROUTE .STK-MED ONE Stop: 05/21/17 08:30 Rocuronium [place] (Zemuron) Confirm Administered Dose 50 mg .ROUTE .STK-MED ONE Stop: 05/21/17 08:30 Rocuronium [place] (Zemuron) Confirm Administered Dose 50 mg .ROUTE .STK-MED ONE Stop: 05/21/17 13:52 Scopolamine (Transderm-Scop) 1.5 mg TOP ONETIME ONE Stop: 05/21/17 10:16 Last Admin: 05/21/17 10:15 Dose: 1.5 mg Sodium Chloride (Normal Saline) 500 ml IRR .STK-MED ONE Stop: 05/21/17 17:11 Last Admin: 05/21/17 17:10 Dose: 500 ml Succinylcholine Chloride (Quelicin) Confirm Administered Dose 200 mg .ROUTE .STK -MED ONE Stop: 05/21/17 08:30 Warfarin Sodium 10 mg/ (Warfarin Sodium 2 mg) 12 mg PO ONETIME ONE Stop: 05/22/17 10:01 Last Admin: 05/22/17 09:12 Dose: 12 mg Warfarin Sodium (Coumadin) 15 mg PO ONETIME ONE Stop: 05/23/17 10:01 Last Admin: 05/23/17 09:02 Dose: 15 mg - Exam Quality Assessment: DVT Prophylaxis General: Alert, Oriented, Cooperative, Mild Distress Lungs: Clear to Auscultation, Normal Respiratory Effort Cardiovascular: Regular Rate, Regular Rhythm, No Murmurs Extremities: Non-Tender, Pedal Edema Skin: Warm, Dry Consult PN Assessment/Plan Procedures: Procedures BLOOD TYPING SEROLOGIC ABO (05/29/16) BLOOD TYPING SEROLOGIC RH(D) (05/29/16) CT HEAD/BRAIN W/O DYE (04/09/13) EMERGENCY DEPT VISIT (06/07/13) EMERGENCY DEPT VISIT (06/07/13) PROTHROMBIN TIME (06/07/13) RBC ANTIBODY SCREEN (05/29/16) ROUTINE VENIPUNCTURE (05/29/16) Problem List Initiated/Reviewed/Updated: Yes Plan: ASSESSMENT AND RECOMMENDATIONS GASTRIC BYPASS SURGERY FOR MORBID OBESITY -Postoperative care per Dr. Granger HISTORY OF PULMONARY EMBOLI-management of which was complicated by allergic reaction to Enoxaparin which resulted in a localized as well as somewhat generalized rash. Venous Doppler studies of both lower extremities today negative for deep vein thrombosis. -Continue warfarin -Daily INR -Hold on use of Enoxaparin and heparin because of previous allergy -Fondaparinux 10 mg subcutaneous daily, plan for 5 days of overlap therapy and at least 2 days after INR is within therapeutic range, which ever is longer -Monitor closely for any evidence of allergic reaction or rash
[2017-05-24] MEDS: Acetaminophen Soln 650 MG/20.3 ML UD Cup PO SCH ×4 (01:54→19:27)
[2017-05-24] MEDS: Albuterol/Ipratropium 3.0-0.5 MG/3 ML Neb Soln INH SCH ×4 (07:17→20:07)
[2017-05-24] MEDS ORDERED: Furosemide 20 MG/2 ML VIAL IVPUSH ONE (07:30)
[2017-05-24] MEDS ORDERED: Furosemide 20 MG Tab PO ONE (08:15)
[2017-05-24] MEDS: Venlafaxine 75 MG Cap.ER PO SCH (08:34)
[2017-05-24] MEDS: Celecoxib 200 MG Cap PO SCH (08:34)
[2017-05-24] MEDS: Gabapentin 250 MG/5 ML Solution ML 470 ML Bottle PO SCH ×3 (08:38→20:07)
--- NOTE | 2017-05-24 08:41 | PN ---
DATE OF SERVICE: 05/24/2017 SUBJECTIVE: Becky is postop day #3. She has some low oximetry and she also has some fluid retention. Her bilateral venous Doppler study was negative yesterday. Both her NBA drains have put out 20 and 20 of a light pink serosanguineous drainage. Her PT and INR were 17.4 and 1.59. REVIEW OF SYSTEMS: Remainder of review of systems negative for any pertinent positives and negatives with exception of she is getting pain in her lower back and buttocks area. She states the comes out of her bed and she can actually feel the metal bars. She has been up walking with a walker. OBJECTIVE: GENERAL: Becky Perez is a 37-year-old female. VITAL SIGNS: TPR 98.8, 93, 20, blood pressure 126/60. HEENT: Negative. NECK: Supple. HEART: Regular rate and rhythm. LUNGS: Clear. ABDOMEN: Dressings dry and intact. Abdominal binder is on. EXTREMITIES: Revealed trace peripheral edema. 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 Date of surgery 05/21/2017, Demetris Granger MD. PLAN: 1. Coumadin 10 mg p.o. today ask in a.m. 2. Acapella use as directed. 3. Lasix 20 mg one time p.o. in addition to her regular Lasix. 4. We will evaluate p.r.n. or in a.m. Marybeth Ha PA-C /[id number]
[2017-05-24] MEDS: Furosemide 20 MG Tab PO SCH (09:58)
[2017-05-24] MEDS ORDERED: Warfarin 5 MG Tab PO ONE (10:00)
--- NOTE | 2017-05-24 12:45 | PCM.CONSN ---
- General Info Date of Service: 05/24/17 Subjective Update: Ms. Perez has been stable since yesterday, decisions been made to keep her in the hospital 1 more night because of some fluid retention. Level of dyspnea has been stable and she denies any pleuritic chest pain or pressure. Vital signs have been good and she has remained afebrile, respiratory rate within normal range and good oxygenation - Review of Systems General: Denies: Fever, Chills Pulmonary: Reports: No Symptoms Cardiovascular: Reports: No Symptoms Gastrointestinal: Reports: Abdominal Pain. Denies: Difficulty Swallowing, Nausea, Vomiting - Patient Data Vitals - Most Recent: Last Vital Signs Temp 98.2 F 05/24/17 11:08 Pulse 82 05/24/17 11:08 Resp 14 05/24/17 11:08 BP 138/80 05/24/17 11:08 Pulse Ox 96 05/24/17 11:08 Weight - Most Recent: 494 lb 9.6 oz I&O - Last 24 Hours: Intake & Output 05/23/17 05/24/17 05/24/17 22:59 06:59 14:59 Intake Total 90 330 280 Output Total 25 40 660 Balance 65 290 -380 Lab Results Last 24 Hours: Laboratory Results - last 24 hr 05/24/17 Range/Units 03:55 PT 17.4 H (9.5-12.0) sec INR 1.59 H (0.80-1.20) Med Orders - Current: Current Medications Acetaminophen (Tylenol) 650 mg PO Q6H [facility] Last Admin: 05/24/17 08:33 Dose: 650 mg Albuterol/Ipratropium (Duoneb 3.0-0.5 Mg/3 Ml) 3 ml INH QIDRT [facility] Last Admin: 05/24/17 11:14 Dose: 3 ml Albuterol/Ipratropium (Duoneb 3.0-0.5 Mg/3 Ml) 3 ml INH ASDIRECTED PRN PRN Reason: Shortness of Breath Artificial Tears (Natural Balance Tears) 0 ml EYEBOTH ASDIRECTED PRN PRN Reason: DRY EYES Celecoxib (Celebrex) 200 mg PO DAILY [facility] Last Admin: 05/24/17 08:34 Dose: 200 mg Fondaparinux (Arixtra) 10 mg SUBCUT Q24H [facility] Last Admin: 05/23/17 11:58 Dose: 10 mg Furosemide (Lasix) 20 mg PO DAILY [facility] Last Admin: 05/24/17 09:58 Dose: 20 mg Gabapentin (Neurontin) 300 mg PO TID [facility] Last Admin: 05/24/17 08:38 Dose: 300 mg Hydroxyzine HCl (Vistaril) 75 - 100 mg IM Q4H PRN PRN Reason: UNCONTROLLED PAIN Last Admin: 05/21/17 20:22 Dose: 100 mg Venlafaxine HCl (Effexor Xr) 150 mg PO DAILY [facility] Last Admin: 05/24/17 08:34 Dose: 150 mg Discontinued Medications Acetaminophen (Tylenol Extra Strength) 1,000 mg PO ONETIME ONE Stop: 05/21/17 10:16 Last Admin: 05/21/17 10:17 Dose: 1,000 mg Acetaminophen (Tylenol Solution) 650 mg PO Q6H [facility] Last Admin: 05/22/17 09:10 Dose: 650 mg Acetaminophen (Tylenol) Confirm Administered Dose 650 mg .ROUTE .STK-MED ONE Stop: 05/21/17 21:53 Last Admin: 05/21/17 22:42 Dose: Not Given Albuterol/Ipratropium (Duoneb 3.0-0.5 Mg/3 Ml) 3 ml NEB ONETIME ONE Stop: 05/21/17 11:01 Last Admin: 05/21/17 12:09 Dose: 3 ml Cefoxitin Sodium (Mefoxin) Confirm Administered Dose 2 gm .ROUTE .STK-MED ONE Stop: 05/21/17 11:15 Last Admin: 05/21/17 17:10 Dose: 2 gm Celecoxib (Celebrex) 200 mg PO ONETIME ONE Stop: 05/21/17 10:16 Last Admin: 05/21/17 10:16 Dose: 200 mg Ropivacaine 60 ml/Dexamethasone 8 mg/Epinephrine HCl 0.4 mg/ Sodium Chloride 17.6 ml 0 ml NERVRT ASDIRECTED [facility] Last Admin: 05/21/17 14:03 Dose: 80 syringe Cyanocobalamin (Vitamin B12) 1,000 mcg IM ONETIME ONE Stop: 05/22/17 08:01 Last Admin: 05/22/17 09:10 Dose: 1,000 mcg Dexamethasone (Dexamethasone) Confirm Administered Dose 4 mg .ROUTE .STK-MED ONE Stop: 05/21/17 08:30 Diphenhydramine HCl (Benadryl) 25 - 50 mg IVPUSH Q4H PRN PRN Reason: ITCHING Fentanyl (Sublimaze) Confirm Administered Dose 250 mcg .ROUTE .STK-MED ONE Stop: 05/21/17 15:14 Fentanyl Citrate (Fentanyl) Confirm Administered Dose 500 mcg .ROUTE .STK-MED ONE Stop: 05/21/17 08:30 Furosemide (Lasix) 20 mg PO ONETIME ONE Stop: 05/24/17 08:16 Last Admin: 05/24/17 08:34 Dose: 20 mg Gabapentin (Neurontin) 300 mg PO ONETIME ONE Stop: 05/21/17 10:16 Last Admin: 05/21/17 10:16 Dose: 300 mg Gabapentin (Neurontin) 300 mg PO TID [facility] Last Admin: 05/21/17 22:41 Dose: 300 mg Glycopyrrolate (Robinul) Confirm Administered Dose 1 mg .ROUTE .STK-MED ONE Stop: 05/21/17 08:30 Hydromorphone HCl (Dilaudid) 1 mg IVPUSH Q1H PRN PRN Reason: Pain Last Admin: 05/22/17 20:45 Dose: 1 mg Lidocaine HCl/Dextrose (Lidocaine 2 Gm/D5w 500 Ml) 2 gm in 500 mls @ 30 mls/hr IV .[id number] [facility] PRN Reason: 2 MG/MIN Stop: 05/22/17 18:00 Last Admin: 05/22/17 06:06 Dose: 2 mg/min, 30 mls/hr Ketamine HCl 100 mg/ Sodium (Chloride) 100 mls @ 13.8 mls/hr IV ASDIRECTED [facility] PRN Reason: 5 MCG/KG/MIN Dextrose/Lactated Ringer's (Dextrose 5%-Lactated Ringers) 1,000 mls @ 100 mls/ hr IV ASDIRECTED [facility] Last Admin: 05/21/17 20:08 Dose: 100 mls/hr Cefoxitin Sodium 2 gm/ Sodium (Chloride) 50 mls @ 100 mls/hr IV ONETIME ONE Stop: 05/21/17 11:59 Last Admin: 05/21/17 20:09 Dose: Not Given Lactated Ringer's (Ringers, Lactated) Confirm Administered Dose 1,000 mls @ as directed .ROUTE .STK-MED ONE Stop: 05/21/17 14:31 Lactated Ringer's (Ringers, Lactated) Confirm Administered Dose 1,000 mls @ as directed .ROUTE .STK-MED ONE Stop: 05/21/17 14:31 Sodium Chloride (Normal Saline) Confirm Administered Dose 10 mls @ as directed .ROUTE .STK-MED ONE Stop: 05/21/17 15:31 Dextrose/Lactated Ringer's (Dextrose 5%-Lactated Ringers) 1,000 mls @ 200 mls/ hr IV ASDIRECTED [facility] Last Admin: 05/22/17 01:30 Dose: 200 mls/hr Multivitamins/Minerals 10 ml/Chromium/Copper/Manganese/Seleni/Zn 1 ml/ Thiamine HCl 200 mg/ Dextrose/Lactated Ringer's 1,013 mls @ 200 mls/hr IV ASDIRECTED [facility] Cefoxitin Sodium 2 gm/ Sodium (Chloride) 50 mls @ 100 mls/hr IV Q6H [facility] Stop: 05/23/17 14:29 Last Admin: 05/23/17 08:49 Dose: Not Given Multivitamins/Minerals 10 ml/Chromium/Copper/Manganese/Seleni/Zn 1 ml/ Thiamine HCl 200 mg/ Dextrose/Lactated Ringer's 1,013 mls @ 200 mls/hr IV DAILY@[address] [facility] Dextrose/Lactated Ringer's (Dextrose 5%-Lactated Ringers) 1,000 mls @ 125 mls/ hr IV ASDIRECTED [facility] Last Admin: 05/23/17 01:49 Dose: 125 mls/hr Multivitamins/Minerals 10 ml/Chromium/Copper/Manganese/Seleni/Zn 1 ml/ Thiamine HCl 200 mg/ Dextrose/Lactated Ringer's 1,013 mls @ 125 mls/hr IV DAILY@1600 [facility] Last Admin: 05/22/17 15:58 Dose: 125 mls/hr Iohexol (Omnipaque-300) 50 ml IVPUSH . DIRECTED PRN PRN Reason: RADIOLOGY EXAM Stop: 05/22/17 10:00 Last Admin: 05/22/17 08:28 Dose: 50 ml Ketamine HCl (Ketalar) 23 mg IV ONETIME ONE Stop: 05/21/17 09:01 Last Admin: 05/21/17 20:42 Dose: Not Given Labetalol HCl (Normodyne) 5 - 15 mg IVPUSH Q1H PRN PRN Reason: SBP>160, DBP>95, Last Admin: 05/21/17 21:58 Dose: 10 mg Lidocaine HCl (Xylocaine 2%) 180 mg IVPUSH ONETIME ONE Stop: 05/21/17 09:01 Last Admin: 05/21/17 20:42 Dose: Not Given Meropenem (Merrem) Confirm Administered Dose 500 mg .ROUTE .STK-MED ONE Stop: 05/21/17 15:31 Last Admin: 05/21/17 17:10 Dose: 500 mg Metoclopramide HCl (Reglan) 10 mg IV Q6H [facility] Last Admin: 05/23/17 08:49 Dose: Not Given Miscellaneous Information (Remove Patch) 1 ea TRDERM Q72H [facility] Last Admin: 05/23/17 20:14 Dose: Not Given Neostigmine Methylsulfate (Neostigmine) Confirm Administered Dose 5 mg .ROUTE .STK-MED ONE Stop: 05/21/17 08:30 Ondansetron HCl (Zofran) Confirm Administered Dose 4 mg .ROUTE .STK-MED ONE Stop: 05/21/17 08:30 Ondansetron HCl (Zofran) 4 mg IVPUSH Q4H PRN PRN Reason: NAUSEA Last Admin: 05/22/17 07:39 Dose: 4 mg Pantoprazole Sodium (Protonix Iv) 40 mg IV Q24H [facility] Last Admin: 05/22/17 22:01 Dose: 40 mg Propofol (Diprivan 20 Ml) Confirm Administered Dose 200 mg .ROUTE .STK-MED ONE Stop: 05/21/17 08:30 Rocuronium [place] (Zemuron) Confirm Administered Dose 50 mg .ROUTE .STK-MED ONE Stop: 05/21/17 08:30 Rocuronium [place] (Zemuron) Confirm Administered Dose 50 mg .ROUTE .STK-MED ONE Stop: 05/21/17 13:52 Scopolamine (Transderm-Scop) 1.5 mg TOP ONETIME ONE Stop: 05/21/17 10:16 Last Admin: 05/21/17 10:15 Dose: 1.5 mg Sodium Chloride (Normal Saline) 500 ml IRR .STK-MED ONE Stop: 05/21/17 17:11 Last Admin: 12/11/17 17:10 Dose: 500 ml Succinylcholine Chloride (Quelicin) Confirm Administered Dose 200 mg .ROUTE .STK -MED ONE Stop: 05/21/17 08:30 Warfarin Sodium 10 mg/ (Warfarin Sodium 2 mg) 12 mg PO ONETIME ONE Stop: 05/22/17 10:01 Last Admin: 05/22/17 09:12 Dose: 12 mg Warfarin Sodium (Coumadin) 15 mg PO ONETIME ONE Stop: 05/23/17 10:01 Last Admin: 05/23/17 09:02 Dose: 15 mg Warfarin Sodium (Coumadin) 10 mg PO ONETIME ONE Stop: 05/24/17 10:01 Last Admin: 05/24/17 09:59 Dose: 10 mg - Exam Quality Assessment: DVT Prophylaxis General: Alert, Oriented, Moderate Distress Lungs: Clear to Auscultation, Normal Respiratory Effort Cardiovascular: Regular Rate, Regular Rhythm, No Murmurs GI/Abdominal Exam: Soft, No Organomegaly, Tender. No: Distended, Guarding, Rigid, Rebound Extremities: Non-Tender, Pedal Edema Skin: Warm, Dry Consult PN Assessment/Plan Procedures: Procedures BLOOD TYPING SEROLOGIC ABO (05/29/16) BLOOD TYPING SEROLOGIC RH(D) (05/29/16) CT HEAD/BRAIN W/O DYE (04/09/13) EMERGENCY DEPT VISIT (06/07/13) EMERGENCY DEPT VISIT (06/07/13) PROTHROMBIN TIME (06/07/13) RBC ANTIBODY SCREEN (05/29/16) ROUTINE VENIPUNCTURE (05/29/16) Problem List Initiated/Reviewed/Updated: Yes Plan: ASSESSMENT AND RECOMMENDATIONS GASTRIC BYPASS SURGERY FOR MORBID OBESITY-patient will be kept for one night -Postoperative care per Dr. Granger HISTORY OF PULMONARY EMBOLI-management of which was complicated by allergic reaction to Enoxaparin which resulted in a localized as well as somewhat generalized rash. Venous Doppler studies of both lower extremities today negative for deep vein thrombosis. -Continue warfarin -Daily INR -Hold on use of Enoxaparin and heparin because of previous allergy -Fondaparinux 10 mg subcutaneous daily, plan for 5 days of overlap therapy and at least 2 days after INR is within therapeutic range, which ever is longer -Monitor closely for any evidence of allergic reaction or rash
[2017-05-25] MEDS: Acetaminophen Soln 650 MG/20.3 ML UD Cup PO SCH ×2 (01:26→08:13)
[2017-05-25] MEDS: Albuterol/Ipratropium 3.0-0.5 MG/3 ML Neb Soln INH SCH ×2 (07:07→11:09)
[2017-05-25] MEDS: Celecoxib 200 MG Cap PO SCH (08:13)
[2017-05-25] MEDS: Gabapentin 250 MG/5 ML Solution ML 470 ML Bottle PO SCH (08:47)
[2017-05-25] MEDS: Furosemide 20 MG Tab PO SCH (08:48)
[2017-05-25] MEDS: Venlafaxine 75 MG Cap.ER PO SCH (08:48)
[2017-05-25] MEDS ORDERED: Warfarin 5 MG Tab PO ONE (11:00)
--- NOTE | 2017-05-27 11:40 | OR ---
DATE OF PROCEDURE: 05/21/2017 ADDENDUM: Physician safety assistant, Marybeth Ha played an essential role in assisting in this case, helping to position the patient, retract structures as needed, as well as suturing and cutting sutures when indicated. Her presence improved patient safety and decreased the operative time. Demetris Granger MD /[id number]
--- NOTE | 2017-05-28 10:53 | OR ---
CORRECTED REPORT: 06/12/2017 DATE OF PROCEDURE: 05/21/2017 PREOPERATIVE DIAGNOSIS: Morbid obesity. POSTOPERATIVE DIAGNOSES: 1. Morbid obesity with extreme immobility of abdominal wall and widespread intraabdominal adhesions. 2. Immobile small bowel mesentery requiring small bowel resection to facilitate formation of gastrojejunostomy. OPERATIVE PROCEDURE: Diagnostic laparoscopy converted to laparotomy with: 1. María-en-Y gastric bypass with long limb gastroenterostomy (98364). 2. Small-bowel resection to allow satisfactory mobility of jejunojejunostomy to allow formation of gastrojejunostomy (32071). ANESTHESIA: General. CASKET ASSEMBLER METAL: Marybeth Ha PA-C. INDICATION FOR PROCEDURE: This is a 37-year-old female presenting with longstanding morbid obesity, increasingly significant comorbidities. After preoperative evaluation and discussion, she wished to proceed with a gastric bypass procedure. The patient has extreme morbid obesity with recent weight in excess of 500 pounds, and is therefore somewhat higher risk than typical. Potential risks per se including bleeding, infection, leaks from various GI tract closures, problems with bowel obstruction over time, as well as possibility of cardiopulmonary, septic, or hemorrhagic complications leading to were discussed, and the patient wishes to proceed. DETAILS OF PROCEDURE: The patient was taken to the operating room and placed in a supine position. After general endotracheal anesthesia was induced, she was converted to a lithotomy position and the abdomen was prepped and draped and an orogastric tube was placed. After the abdomen was prepped and draped, at 15 cm inferior, 5 cm left of xiphoid process, a transverse incision was made and the peritoneal cavity entered under direct vision with an Optiview trocar, inflated to 15 mmHg pressure with CO2. Laparoscope was then reinserted. No underlying trocar insertion site injuries were seen. Following this, 5 additional trocars were placed across the upper mid abdomen and general exploration was undertaken. Using direct visualization of the location of the needle, bilateral subcostal transversus abdominis plain blocks were placed using the standard solution. At this point, the patient was noted to have quite extensive diffuse adhesions, these appeared likely to have been a result of the patient's postoperative bile leak following a previous cholecystectomy. In addition to that, the patient was noted to have an extremely immobile abdominal wall, making it almost impossible to manipulate the laparoscopic instrumentation through the trocars. Given this, a decision at that point was made to proceed with an open approach, trocars were removed, and the peritoneal cavity deflated. An upper midline incision was then made from the xiphoid, just above the umbilicus and carried down through the full-thickness abdominal wall. Upon entering the peritoneal cavity, general exploration was undertaken. The patient was noted to have marked hepatomegaly with liver being roughly 2 to 3 times normal. Dannie-Cut needle liver biopsies were obtained from the left lobe, and minimal bleeding from the biopsy sites was controlled with electrocautery. At this point, fairly extensive adhesions were taken down. This eventually allowed adequate visualization of the area of the proximal stomach and gastroesophageal junction, as well as the small bowel. At this point, the ligament of Treitz was identified and the small bowel was then traced out 150 cm distal to that point. The small bowel was noted to be relatively immobile due to marked fatty infiltration of the mesentery. It was felt that a small bowel resection would facilitate mobility of the jejunojejunostomy, which would subsequently allow formation of the gastrojejunostomy with a reasonably tension-free anastomosis. After division of the small bowel at around 150 cm distal to the ligament of Treitz, roughly 15 cm of the small bowel was then resected, having been divided with a SUZANNE stapler initially, as well as the subsequent underlying mesentery being divided with Harmonic scalpel. At this point, the small bowel was then traced out to 150 cm distal to that point where we then anastomosed to the distal end of the biliopancreatic limb. This was done with internal firing of the Endo-SUZANNE 60 mm stapler, common opening was then closed transversely with the same stapler, angles anastomosed, and the mesenteric defect approximated with some 0 Ethibond stitch, along with fibrin sealant. At this point, attention was taken to formation of the gastric pouch. The lesser omental tissue adjacent to the proximal stomach was divided. This allowed blunt dissection behind the stomach at a point just below the esophagogastric junction. The landmark for this was established with insertion of a gastrointestinal balloon catheter at 15 cm. The stomach was then encircled from that point up along to the angle of His and then divided there with 2 firings of the SUZANNE purple loads, thus creating the gastric pouch. Upon inspection of the staple lines, both were found to be intact. Blunt dissection of the transverse mesocolon was then accomplished, and this allowed mobilization of the María limb up to the level of the divided end of the gastric pouch through a retrogastric-retrocolic approach. This eventually provided adequate mobilization of the María limb up to the divided gastric pouch with reasonable lack of tension. The anvil of a 25-mm EEA stapler was then attached to a [place] sump type tube. The latter was brought down through the mouth and taken out through a small opening in the gastric pouch, allowing the anvil likewise to be pulled down into the gastric pouch. The divided end of the María limb was then opened and the main body of the EEA stapler passed several centimeters into the lumen of the small bowel, brought up the anvil and united with it, thus creating the gastrojejunostomy. Upon removal of the stapler, double donuts of mucosa were noted within it. The small bowel was closed off with a vascular staple line. Gastrojejunostomy was then reinforced with some 3-0 Vicryl seromuscular stitch, along with fibrin sealant. A leak test was then completed with injection of air into the gastric pouch via the gastrointestinal balloon catheter while submerged with saline containing antibiotic and no leaks were identified. At this point, the point where the small bowel passed through the transverse mesocolon was fixed at that level with some 3-0 Vicryl stitch and the abdomen irrigated with antibiotic- containing saline solution. Two David-Flores drains were then placed through the left subcostal incisions and placed adjacent to the gastrojejunostomy. The midline fascia was then approximated with #2 Vicryl stitch, and the subcutaneous tissue was drained with a 15- Sami round David-Flores drain, which was brought through a stab wound inferior to the main incision and sutured with a 3-0 Vicryl stitch. The incision was then closed with 3-0 and 4-0 Vicryl stitch deep and lisseth for the skin. Dressing was applied. The patient was taken to the recovery room in satisfactory condition. Demetris Granger MD /[id number]
--- NOTE | 2017-05-28 11:38 | DISCH ---
ADMISSION DIAGNOSES: 1. Morbid obesity. 2. BMI 73.2. 3. Depression. 4. Gastroesophageal reflux disease. 5. Obstructive sleep apnea using a BiPAP. 6. Pulmonary embolism, felt to be related to control and smoking. 7. History of anemia. 8. Headaches. 9. Bilateral carotid artery disease. 10.Long-term use of anticoagulation. 11.Joint pain. DISCHARGE DIAGNOSES: 1. Laparoscopic turned to laparotomy with María-en-Y gastric bypass surgery, liver biopsy, and small bowel resection for morbid obesity, extreme immobility of abdominal wall and intraabdominal adhesions, hepatomegaly, immobile small bowel mesentery, requiring small bowel resection to allow gastrojejunostomy. Date of surgery 05/21/2017, Demetris Granger M.D. 2. Anticoagulation therapy. On the day of discharge, PT 22.5 and INR 2.05. HISTORY: Becky Perez is a 37-year-old female with longstanding history of morbid obesity. After preoperative evaluation and discussion of possible risks and possible complications, she wished to proceed with surgical procedure. HOSPITAL COURSE: Becky had her surgery on 05/21/2017. She had no operative complications. She did have an Internal Medicine consult, Robel Low M.D., for management of DVT prophylaxis because of previous pulmonary embolism and complicated by allergic reaction to Lovenox. Becky on postop day #1 was started on a Step 1 gastric bypass diet. She was started on fondaparinux (Arixtra) 10 mg subcu every 24 hours, along with daily adjusted oral Coumadin. On postop day #2, Becky was continued on the Step 1 with milk and protein drink. Her IV did come out. She had bilateral Doppler of her lower extremities, which was negative. She continued to be monitored with daily PT and INR, and she was therapeutic. On 05/25/2017, she was able to be discharged to home. She did have adequate dietary instructions. Vital signs were stable. Oral intake was adequate with 1100 in. REVIEW OF SYSTEMS: Remainder of review of systems negative for any pertinent positives and negatives. OBJECTIVE: GENERAL: Becky Perez is a 37-year-old female. VITAL SIGNS: Height is 5 feet 8.9 inches, weight is 494 pounds 9.6 ounces, BMI is 73.2. TPR 97.1, 83, 18. Blood pressure 121/64. O2 saturations by pulse oximetry is 91%. HEENT: Negative. NECK: Supple. HEART: Regular rate and rhythm. LUNGS: Clear. ABDOMEN: [place] intact. She has one midline NBA drain that will be left in and see discharge orders for care. The other two NBA drains were removed, 4x4s over NBA drain sites. EXTREMITIES: Reveal possibly trace peripheral edema. DISPOSITION: Discharged to home. CONDITION: Stable and improving. FOLLOWUP APPOINTMENTS: Marybeth Ha PA-C, on 05/29/2017, at 10:00 a.m., at [facility] in [place], [place]. She is to have a PT and INR at 9:30 a.m. that morning. MEDICATIONS: New prescriptions: 1. Tylenol 650 mg/20.3 mL cup oral q.6 hours. 2. Celebrex 200 mg p.o. daily, 14 days. 3. Coumadin 5 mg p.o. daily. 4. Ventolin 2 puffs every 6 hours. 5. Furosemide 20 mg daily. 6. Omeprazole 20 mg daily. 7. Systane lubricant 1 drop both eyes as needed. 8. Potassium chloride 10 mEq oral daily. 9. Effexor XR 150 mg oral daily. DIET AFTER DISCHARGE: Step 1 gastric bypass diet with protein shakes only. ACTIVITY: No lifting over 10 pounds for 6 weeks. Other activity, walk with your walker 6 to 8 times a day inside your home. Driving after discharge, do not drive for 1 week. Shower/bathing, may shower. Notify provider if any fever, increased pain, swelling, redness, drainage, nausea, or vomiting. Keep site clean and dry. Wound incision care: Strip, empty, measure, and record NBA drain 4 times a day. Even if nothing is in the drain, strip and re-suction bulb. Bring record of drainage to clinic. Wear abdominal binder for 6 weeks and then as tolerated. SPECIAL INSTRUCTIONS: Keep a record of protein and liquid intake each day and bring to clinic appointments. Use incentive spirometer 10 times every hour while awake for 2 weeks.
== END 2017-05-25 11:38 | disposition home or self-care (01) | DRG 621 ==
LOC: EDSTATUS 05-21 07:30 → JP.SDS 05-21 08:06 → JP.MS 05-21 08:06 → JP.2SS 05-21 18:00
PROVIDERS: ADMIT Surgery; ATTEND Surgery
PROC: 0D160ZA Bypass Stomach to Jejunum, Open Approach (ICD-10-PCS; principal; 2017-05-21)
PROC: 0DJ64ZZ Inspection of Stomach, Percutaneous Endoscopic Approach (ICD-10-PCS; 2017-05-21)
PROC: 0FB20ZX Excision of Left Lobe Liver, Open Approach, Diagnostic (ICD-10-PCS; 2017-05-21)
PROC: 0DB80ZX Excision of Small Intestine, Open Approach, Diagnostic (ICD-10-PCS; 2017-05-21)
PROC: 3E0T3BZ Introduction of Anesthetic Agent into Peripheral Nerves and Plexi, Percutaneous Approach (ICD-10-PCS; 2017-05-21)
DX: E66.01 Morbid (severe) obesity due to excess calories (principal); Z68.45 Body mass index [BMI] 70 or greater, adult; K66.0 Peritoneal adhesions (postprocedural) (postinfection); R16.0 Hepatomegaly, not elsewhere classified; Z53.31 Laparoscopic surgical procedure converted to open procedure; K59.8 Other specified functional intestinal disorders; F32.9 Major depressive disorder, single episode, unspecified; G47.33 Obstructive sleep apnea (adult) (pediatric); Z79.01 Long term (current) use of anticoagulants; Z86.711 Personal history of pulmonary embolism; Z87.891 Personal history of nicotine dependence; Z91.040 Latex allergy status; Z91.018 Allergy to other foods; Z88.0 Allergy status to penicillin; Z88.2 Allergy status to sulfonamides; Z88.8 Allergy status to other drugs, medicaments and biological substances; R60.9 Edema, unspecified; K21.9 Gastro-esophageal reflux disease without esophagitis; M25.50 Pain in unspecified joint
CPT/HCPCS: 36415; 74240; 74240-26; 80053; 82962; 83735; 83880; 84100; 85027; 85610; 86850; 86900; 86901; 88305; 88307; 93970; 93970-26; 94640; 94667; 94762; A9270-GY; C9113; C9399; J0171; J0330; J0694; J1100; J1170; J1652; J2001; J2185; J2405; J2704; J2710; J2765; J2795; J3010; J3410; J3411; J3420; J7030; J7040; J7042; J7050; J7120; J7620; Q9967

== ENCOUNTER 2017-06-18 14:15 | Observation (INO) | payer MEDICAID ==
[2017-06-18] MEDS ORDERED: Acetaminophen 650 MG Supp RECTAL PRN (14:48)
[2017-06-18] MEDS ORDERED: Albuterol/Ipratropium 3.0-0.5 MG/3 ML Neb Soln INH PRN (14:53)
[2017-06-18] MEDS ORDERED: Lactated Ringers 1,000 ML IV ONE (15:00)
[2017-06-18] MEDS ORDERED: MVI, Adult with Vitamin K 10 ML, Chromium/Copper/Mang/Selen/Zn 1 ML, Thiamine 200 MG in... IV ONE ×4 (15:30)
[2017-06-18] MEDS ORDERED: Phytonadione 10 MG in Sodium Chloride 0.9% 50 ML IV ONE (15:30)
[2017-06-18] MEDS: Albuterol/Ipratropium 3.0-0.5 MG/3 ML Neb Soln INH SCH ×2 (16:44→20:52)
[2017-06-18] MEDS: Pantoprazole 40 MG Vial IV SCH (16:49)
[2017-06-18] MEDS: Levofloxacin/Dextrose 5%-Water 500 MG in Premix Bag 1 BAG IV SCH (18:45)
[2017-06-18] MEDS ORDERED: Dextrose 5%-Lactated Ringers 1,000 ML IV SCH (20:00)
[2017-06-18] MEDS: Acetaminophen 325 MG Tab PO PRN (20:01)
[2017-06-18] MEDS ORDERED: Ondansetron 4 MG/2 ML SDV ONE (20:47)
[2017-06-18] MEDS: Ondansetron 4 MG/2 ML SDV IVPUSH PRN (20:51)
[2017-06-18] MEDS: Dextrose 5%-Lactated Ringers 1,000 ML IV SCH (22:20)
[2017-06-19] MEDS: Pantoprazole 40 MG Vial IV SCH ×2 (05:01→16:21)
[2017-06-19] MEDS: Dextrose 5%-Lactated Ringers 1,000 ML IV SCH ×2 (05:01→13:27)
[2017-06-19] MEDS: Albuterol/Ipratropium 3.0-0.5 MG/3 ML Neb Soln INH SCH ×4 (07:38→20:53)
[2017-06-19] MEDS ORDERED: Potassium Chloride 40 MEQ in Premix Bag 1 BAG IV ONE (07:57)
[2017-06-19] MEDS ORDERED: Albuterol 8 GM Inhaler INH PRN (08:00)
[2017-06-19] MEDS ORDERED: PROPYLENE GLYCOL EYEBOTH PRN (08:00)
[2017-06-19] MEDS ORDERED: PEG EYEBOTH PRN (08:00)
[2017-06-19] MEDS ORDERED: SYSTANE ULTRA EYEBOTH PRN (08:41)
[2017-06-19] MEDS ORDERED: Non-Formulary Medication 1 Each (Venlafaxine [Effexor Xr] 150 MG) PO SCH (09:00)
--- NOTE | 2017-06-19 09:28 | PCM.HP ---
H&P History of Present Illness - General Date of Service: 06/18/17 Admit Problem/Dx: Admission Diagnosis/Problem Admission Diagnosis/Problem Abdominal pain Source of Information: Patient History Limitations: Reports: No Limitations - History of Present Illness Initial Comments - Free Text/Narative: Becky was admitted to [facility] after being seen in [facility]. She was unable to drink any liquids for 48 hours and her INR was 7.7. Records were reviewed from [place], [place]. Location: Reports: Abdomen Quality: Reports: Burning, Dull, Pressure Severity: Moderate Improves with: Reports: None Worsens with: Reports: Eating Context: Reports: Sick Contact Associated Symptoms: Reports: Nausea/Vomiting, Weakness Headache Pain Score (Numeric/FACES): 5 - Related Data Allergies/Adverse Reactions: Allergies Allergy/AdvReac Type Severity Reaction Status Date / Time enoxaparin Allergy Rash Verified 05/21/17 10:28 latex Allergy Hives Verified 06/07/13 16:15 mold Allergy Headache Verified 05/21/17 10:28 Penicillins Allergy Edema Verified 05/21/17 10:28 strawberry Allergy Hives Verified 05/21/17 10:28 Sulfa (Sulfonamide Allergy Itching Verified 05/21/17 10:28 Antibiotics) Home Medications: Home Meds Albuterol [Ventolin HFA] 2 puff INH Q6HR PRN 05/17/17 [History] Celecoxib [CeleBREX] 200 mg PO DAILY 05/17/17 [History] Furosemide 20 mg PO DAILY 05/17/17 [History] Omeprazole 20 mg PO BID 05/17/17 [History] Potassium Chloride 10 meq PO DAILY 05/17/17 [History] Venlafaxine [Effexor XR] 150 mg PO DAILY 05/17/17 [History] PEG 400/Propylene Glycol [Systane Lubricant] 1 drop EYEBOTH DAILY PRN 05/21/17 [ History] Acetaminophen [Tylenol] 650 mg PO Q6H cup 05/25/17 [Rx] Celecoxib [CeleBREX] 200 mg PO DAILY cap 05/25/17 [Rx] Warfarin [Coumadin] 5 mg PO DAILY #0 05/25/17 [Rx] Past Medical History HEENT History: Reports: Other (See Below) Other HEENT History: wears glasses Respiratory History: Reports: Asthma, PE, Sleep Apnea Gastrointestinal History: Reports: Colon Polyp, GERD, Hemorrhoids Musculoskeletal History: Reports: Arthritis, Back Pain, Chronic Neurological History: Reports: Headaches, Chronic, Seizure, Other (See Below) Other Neuro History: seizure after IV steroid Psychiatric History: Reports: ADHD, Anxiety, Depression, PTSD, Suicide Attempt Endocrine/Metabolic History: Reports: Obesity/BMI 30+, Other (See Below) Other Endocrine/Metabolic History: pre diabetic Hematologic History: Reports: Anemia Dermatologic History: Reports: Cellulitis - Past Surgical History GI Surgical History: Reports: Cholecystectomy, Colonoscopy, Hernia, Abdominal, Other (See Below) Other GI Surgeries/Procedures: bile leak after cholecystecomy Female Surgical History: Reports: Other (See Below) Other Female Surgeries/Procedures: left breast lump Social & Family History - Tobacco Use Smoking Status *Q: Former Smoker Years of Tobacco use: 25 Packs/Tins Daily: 0.2 Used Tobacco, but Quit: Yes Month Tobacco Last Used: May 21 2017 Second Hand Smoke Exposure: Yes - Caffeine Use Caffeine Use: Reports: None - Recreational Drug Use Recreational Drug Use: No H&P Review of Systems - Review of Systems: Review Of Systems: See Below General: Reports: Weakness, Fatigue HEENT: Reports: No Symptoms Pulmonary: Reports: No Symptoms Cardiovascular: Reports: No Symptoms Gastrointestinal: Reports: Abdominal Pain (mid epigastric area), Decreased Appetite Genitourinary: Reports: No Symptoms Musculoskeletal: Reports: No Symptoms Skin: Reports: No Symptoms Psychiatric: Reports: No Symptoms Neurological: Reports: No Symptoms Hematologic/Lymphatic: Reports: No Symptoms Immunologic: Reports: No Symptoms Exam - Exam Exam: See Below - Vital Signs Vital Signs: Last Vital Signs Temp 96.5 F 06/19/17 07:18 Pulse 70 06/19/17 07:18 Resp 16 06/19/17 07:18 BP 136/66 06/19/17 07:18 Pulse Ox 94 L 06/19/17 07:23 Weight: 450 lb 1 oz - Exam Quality Assessment: DVT Prophylaxis General: Alert, Oriented, Cooperative HEENT: PERRLA, Hearing Intact Neck: Supple, Trachea Midline Lungs: Clear to Auscultation, Normal Respiratory Effort Cardiovascular: Regular Rate, Regular Rhythm GI/Abdominal Exam: Normal Bowel Sounds, Soft, Non-Tender (Female) Exam: Deferred Rectal (Female) Exam: Deferred Back Exam: Normal Inspection Extremities: Normal Inspection, Pedal Edema (scant) Skin: Warm, Dry, Intact Neurological: Cranial Nerves Intact, Reflexes Equal Bilateral Neuro Extensive - Mental Status: Alert, Oriented x3, Normal Mood/Affect, Normal Cognition, Memory Intact Neuro Extensive - Motor, Sensory, Reflexes: CN II-XII Intact Psychiatric: Alert, Normal Affect, Normal Mood - Patient Data Lab Results Last 24 hrs: Laboratory Results - last 24 hr 06/18/17 06/18/17 06/18/17 Range/Units 15:55 15:55 15:55 WBC 5.2 (4.5-11.0) K/uL RBC 4.18 (3.30-5.50) M/uL Hgb 10.1 L (12.0-15.0) g/dL Hct 33.6 L (36.0-48.0) % MCV 80 (80-98) fL MCH 24 L (27-31) pg MCHC 30 L (32-36) % Plt Count 268 (150-400) K/uL Neut % (Auto) 65 (36-66) % Lymph % (Auto) 24 (24-44) % [place] % (Auto) 9 H (2-6) % Eos % (Auto) 2 (2-4) % Baso % (Auto) 0 (0-1) % PT 74.0 H (9.5-12.0) sec INR 6.40 H* D (0.80-1.20) Sodium 142 (140-148) mmol/L Potassium 4.0 (3.6-5.2) mmol/L Chloride 101 (100-108) mmol/L Carbon Dioxide 32 (21-32) mmol/L Anion Gap 9.3 (5.0-14.0) mmol/L BUN 5 L D (7-18) mg/dL Creatinine 0.9 (0.6-1.0) mg/dL Est Cr Clr Drug Dosing 88.57 mL/min Estimated GFR (MDRD) > 60 (>60) Glucose 84 (74-106) mg/dL Calcium 8.8 (8.5-10.1) mg/dL Phosphorus (2.5-4.9) mg/dL Magnesium (1.8-2.4) mg/dL Total Bilirubin 0.5 (0.2-1.0) mg/dL AST 21 D (15-37) U/L ALT 21 D (12-78) U/L Alkaline Phosphatase 103 (46-116) U/L Total Protein 6.8 (6.4-8.2) g/dL Albumin 3.0 L (3.4-5.0) g/dL Globulin 3.8 H (2.3-3.5) g/dL Albumin/Globulin Ratio 0.8 L (1.2-2.2) Urine Color Urine Appearance Urine pH (4.5-8.0) Ur Specific [place] (1.008-1.030) Urine Protein (NEGATIVE) mg/dL Urine Glucose (UA) (NEGATIVE) mg/dL Urine Ketones (NEGATIVE) mg/dL Urine Occult Blood (NEGATIVE) Urine Nitrite (NEGATIVE) Urine Bilirubin (NEGATIVE) Urine Urobilinogen (NORMAL) mg/dL Ur Leukocyte Esterase (NEGATIVE) Urine RBC (0-5) Urine WBC (0-5) Ur Epithelial Cells Amorphous Sediment Urine Bacteria Urine Mucus 06/18/17 06/18/17 06/19/17 Range/Units 15:55 16:19 04:45 WBC 4.3 L (4.5-11.0) K/uL RBC 3.86 (3.30-5.50) M/uL Hgb 9.4 L (12.0-15.0) g/dL Hct 31.2 L (36.0-48.0) % MCV 81 (80-98) fL MCH 24 L (27-31) pg MCHC 30 L (32-36) % Plt Count 250 (150-400) K/uL Neut % (Auto) 56 (36-66) % Lymph % (Auto) 27 (24-44) % [place] % (Auto) 14 H (2-6) % Eos % (Auto) 4 (2-4) % Baso % (Auto) 1 (0-1) % PT (9.5-12.0) sec INR (0.80-1.20) Sodium (140-148) mmol/L Potassium (3.6-5.2) mmol/L Chloride (100-108) mmol/L Carbon Dioxide (21-32) mmol/L Anion Gap (5.0-14.0) mmol/L BUN (7-18) mg/dL Creatinine (0.6-1.0) mg/dL Est Cr Clr Drug Dosing mL/min Estimated GFR (MDRD) (>60) Glucose (74-106) mg/dL Calcium (8.5-10.1) mg/dL Phosphorus 3.5 (2.5-4.9) mg/dL Magnesium 1.6 L (1.8-2.4) mg/dL Total Bilirubin (0.2-1.0) mg/dL AST (15-37) U/L ALT (12-78) U/L Alkaline Phosphatase (46-116) U/L Total Protein (6.4-8.2) g/dL Albumin (3.4-5.0) g/dL Globulin (2.3-3.5) g/dL Albumin/Globulin Ratio (1.2-2.2) Urine Color Yellow Urine Appearance Turbid Urine pH 6.0 (4.5-8.0) Ur Specific [place] 1.020 (1.008-1.030) Urine Protein Negative (NEGATIVE) mg/dL Urine Glucose (UA) Normal (NEGATIVE) mg/dL Urine Ketones 150 H (NEGATIVE) mg/dL Urine Occult Blood Large (NEGATIVE) Urine Nitrite Positive H (NEGATIVE) Urine Bilirubin Small (NEGATIVE) Urine Urobilinogen Normal (NORMAL) mg/dL Ur Leukocyte Esterase Moderate (NEGATIVE) Urine RBC 10-20 H (0-5) Urine WBC 10-20 H (0-5) Ur Epithelial Cells Moderate Amorphous Sediment Few Urine Bacteria Many Urine Mucus Few 06/19/17 06/19/17 Range/Units 04:45 04:45 WBC (4.5-11.0) K/uL RBC (3.30-5.50) M/uL Hgb (12.0-15.0) g/dL Hct (36.0-48.0) % MCV (80-98) fL MCH (27-31) pg MCHC (32-36) % Plt Count (150-400) K/uL Neut % (Auto) (36-66) % Lymph % (Auto) (24-44) % [place] % (Auto) (2-6) % Eos % (Auto) (2-4) % Baso % (Auto) (0-1) % PT 17.3 H (9.5-12.0) sec INR 1.59 H D (0.80-1.20) Sodium 142 (140-148) mmol/L Potassium 3.5 L (3.6-5.2) mmol/L Chloride 102 (100-108) mmol/L Carbon Dioxide 30 (21-32) mmol/L Anion Gap 13.5 (5.0-14.0) mmol/L BUN 4 L (7-18) mg/dL Creatinine 0.9 (0.6-1.0) mg/dL Est Cr Clr Drug Dosing 88.57 mL/min Estimated GFR (MDRD) > 60 (>60) Glucose 123 H (74-106) mg/dL Calcium 8.3 L (8.5-10.1) mg/dL Phosphorus 4.1 (2.5-4.9) mg/dL Magnesium 1.6 L (1.8-2.4) mg/dL Total Bilirubin 0.8 D (0.2-1.0) mg/dL AST 18 (15-37) U/L ALT 18 (12-78) U/L Alkaline Phosphatase 91 (46-116) U/L Total Protein 6.2 L (6.4-8.2) g/dL Albumin 2.6 L (3.4-5.0) g/dL Globulin 3.6 H (2.3-3.5) g/dL Albumin/Globulin Ratio 0.7 L (1.2-2.2) Urine Color Urine Appearance Urine pH (4.5-8.0) Ur Specific [place] (1.008-1.030) Urine Protein (NEGATIVE) mg/dL Urine Glucose (UA) (NEGATIVE) mg/dL Urine Ketones (NEGATIVE) mg/dL Urine Occult Blood (NEGATIVE) Urine Nitrite (NEGATIVE) Urine Bilirubin (NEGATIVE) Urine Urobilinogen (NORMAL) mg/dL Ur Leukocyte Esterase (NEGATIVE) Urine RBC (0-5) Urine WBC (0-5) Ur Epithelial Cells Amorphous Sediment Urine Bacteria Urine Mucus Result Diagrams: 06/19/17 04:45 06/19/17 04:45 Cory Results Last 24 hrs: Microbiology 06/18/17 17:15 Urine Culture - Preliminary Urine, Clean Catch *Q Meaningful Use (ADM) - VTE *Q VTE Criteria *Q: - Stroke *Q Stroke Criteria *Q: - AMI *Q AMI Criteria *Q: Problem List Initiated/Reviewed/Updated: Yes Orders Last 24hrs: Active Orders 24 hr Category Date Time Status Patient Status [ADT] Routine ADT 06/18/17 14:20 Active Ambulate [RC] QID Care 06/18/17 15:40 Active Communication Order [RC] ROUTINE Care 06/19/17 07:58 Active Intake and Output [RC] PRN Care 06/19/17 04:13 Active Overnight Pulse Oximetry [RC] Click to Edit Care 06/18/17 15:43 Active RT BiPAP/CPAP [RC] ASDIRECTED Care 06/18/17 15:40 Active RT Incentive Spirometry [RC] ASDIRECTED Care 06/18/17 15:40 Active Turn, Cough, Deep Breathe [RC] .PRN Care 06/18/17 15:40 Active Up to Chair [RC] QID Care 06/18/17 15:40 Active Bariatric Diet [DIET] Diet 06/19/17 Breakfast Active CULTURE URINE [RM] Routine Lab 06/18/17 17:15 Results INR,PT,PROTHROMBIN TIME [COAG] DAILY Lab 06/20/17 04:00 Ordered INR,PT,PROTHROMBIN TIME [COAG] DAILY Lab 06/21/17 04:00 Ordered INR,PT,PROTHROMBIN TIME [COAG] DAILY Lab 06/22/17 04:00 Ordered INR,PT,PROTHROMBIN TIME [COAG] DAILY Lab 06/23/17 04:00 Ordered INR,PT,PROTHROMBIN TIME [COAG] DAILY Lab 06/24/17 04:00 Ordered INR,PT,PROTHROMBIN TIME [COAG] DAILY Lab 06/25/17 04:00 Ordered INR,PT,PROTHROMBIN TIME [COAG] DAILY Lab 06/26/17 04:00 Ordered INR,PT,PROTHROMBIN TIME [COAG] DAILY Lab 06/27/17 04:00 Ordered INR,PT,PROTHROMBIN TIME [COAG] DAILY Lab 06/28/17 04:00 Ordered INR,PT,PROTHROMBIN TIME [COAG] DAILY Lab 06/29/17 04:00 Ordered INR,PT,PROTHROMBIN TIME [COAG] DAILY Lab 06/30/17 04:00 Ordered INR,PT,PROTHROMBIN TIME [COAG] DAILY Lab 07/01/17 04:00 Ordered INR,PT,PROTHROMBIN TIME [COAG] DAILY Lab 07/02/17 04:00 Ordered INR,PT,PROTHROMBIN TIME [COAG] DAILY Lab 07/03/17 04:00 Ordered INR,PT,PROTHROMBIN TIME [COAG] DAILY Lab 07/04/17 04:00 Ordered INR,PT,PROTHROMBIN TIME [COAG] DAILY Lab 07/05/17 04:00 Ordered INR,PT,PROTHROMBIN TIME [COAG] DAILY Lab 07/06/17 04:00 Ordered INR,PT,PROTHROMBIN TIME [COAG] DAILY Lab 07/07/17 04:00 Ordered INR,PT,PROTHROMBIN TIME [COAG] DAILY Lab 07/08/17 04:00 Ordered INR,PT,PROTHROMBIN TIME [COAG] DAILY Lab 07/09/17 04:00 Ordered INR,PT,PROTHROMBIN TIME [COAG] DAILY Lab 07/10/17 04:00 Ordered INR,PT,PROTHROMBIN TIME [COAG] DAILY Lab 07/11/17 04:00 Ordered Acetaminophen [Tylenol] Med 06/18/17 14:48 Active 650 mg PO Q4H PRN Acetaminophen [Tylenol] Med 06/18/17 14:48 Active 650 mg RECTAL Q4H PRN Albuterol [Ventolin HFA] Med 06/19/17 08:00 Active 0 gm INH Q6H PRN Albuterol/Ipratropium [DuoNeb 3.0-0.5 MG/3 ML] Med 06/18/17 14:53 Active 3 ml INH ASDIRECTED PRN Albuterol/Ipratropium [DuoNeb 3.0-0.5 MG/3 ML] Med 06/18/17 15:00 Active 3 ml INH QIDRT Dextrose 5%-Lactated Ringers 1,000 ml Med 06/19/17 07:58 Active IV ASDIRECTED Levofloxacin/Dextrose 5%-Water [Levaquin in D5W 500 MG/ Med 06/18/17 17:00 Active 100 ML] 500 mg Premix Bag 1 bag IV Q24H Ondansetron [Zofran] Med 06/18/17 20:46 Active 4 mg IVPUSH Q4H PRN Pantoprazole [ProTONIX IV] Med 06/18/17 16:00 Active 40 mg IV Q12H Patient's Own Medication [Ptom] Med 06/19/17 08:41 Active 0 each EYEBOTH DAILY PRN Potassium Chloride 20 meq Med 06/19/17 09:30 Active Lidocaine 1% [Xylocaine 1%] 2 ml Sodium Chloride 0.9% [Normal Saline] 100 ml IV Q2H Venlafaxine [Effexor XR] Med 06/19/17 09:00 Active 150 mg PO DAILY Pulse Oximetry Continuous Monitoring [OM.PC] Routine Oth 06/18/17 15:40 Ordered Sequential Compression Device [OM.PC] Routine Oth 06/18/17 15:40 Ordered Medication Orders Acetaminophen (Tylenol) 650 mg RECTAL Q4H PRN PRN Reason: ANALGESIA/FEVER Acetaminophen (Tylenol) 650 mg PO Q4H PRN PRN Reason: ANALGESIA/FEVER Last Admin: 06/18/17 20:01 Dose: 650 mg Albuterol (Ventolin Hfa) 0 gm INH Q6H PRN PRN Reason: Wheezing Albuterol/Ipratropium (Duoneb 3.0-0.5 Mg/3 Ml) 3 ml INH QIDRT [facility] Last Admin: 06/19/17 07:38 Dose: 3 ml Admin: 06/18/17 20:52 Dose: 3 ml Admin: 06/18/17 16:44 Dose: Not Given Albuterol/Ipratropium (Duoneb 3.0-0.5 Mg/3 Ml) 3 ml INH ASDIRECTED PRN PRN Reason: * Levofloxacin/Dextrose 500 mg/ (Premix) 100 mls @ 100 mls/hr IV Q24H [facility] Last Admin: 06/18/17 18:45 Dose: 100 mls/hr Dextrose/Lactated Ringer's (Dextrose 5%-Lactated Ringers) 1,000 mls @ 100 mls/ hr IV ASDIRECTED [facility] Potassium Chloride 20 meq/Lidocaine HCl 2 ml/ Sodium Chloride 112 mls @ 56 mls/ hr IV Q2H [facility] Stop: 06/19/17 13:29 Ondansetron HCl (Zofran) 4 mg IVPUSH Q4H PRN PRN Reason: Nausea/Vomiting Last Admin: 06/18/17 20:51 Dose: 4 mg Pantoprazole Sodium (Protonix Iv) 40 mg IV Q12H [facility] Last Admin: 06/19/17 05:01 Dose: 40 mg Admin: 06/18/17 16:49 Dose: 40 mg Systane Ultra (Ptom) 0 each EYEBOTH DAILY PRN PRN Reason: DRY EYES Venlafaxine HCl (Effexor Xr) 150 mg PO DAILY TUCKER Assessment/Plan Comment:: Assessment: INR of 7.7 Dehydration Nausea and Vomiting Mid Epigastric Pain SP RNY Gastric Bypass Surgery Unspecified Surgical Malabsorption Vitamin B Deficiency History of Pulmonary Embolism X 2 Plan: Admit to Observation See Copy of Orders in EMR Marybeth Howe
[2017-06-19] MEDS: Venlafaxine 75 MG Cap.ER PO SCH (09:31)
[2017-06-19] MEDS: Potassium Chloride 20 MEQ, Lidocaine 1% 2 ML in Sodium Chloride 0.9% 100 ML IV SCH ×2 (10:15→12:13)
[2017-06-19] MEDS: Ondansetron 4 MG/2 ML SDV IVPUSH PRN (11:33)
[2017-06-19] MEDS: Hyoscyamine 0.125 MG Tab.SL SL SCH ×2 (16:20→21:57)
[2017-06-19] MEDS: Levofloxacin/Dextrose 5%-Water 500 MG in Premix Bag 1 BAG IV SCH (16:21)
[2017-06-19] MEDS: Fluticasone Propionate Nasal Spray 16 GM Bottle NASBOTH SCH (23:00)
[2017-06-20] MEDS: Pantoprazole 40 MG Vial IV SCH ×2 (04:21→15:31)
[2017-06-20] MEDS: Hyoscyamine 0.125 MG Tab.SL SL SCH ×4 (04:23→21:57)
[2017-06-20] MEDS ORDERED: Propofol 200 MG/20 ML SDV ONE (06:59)
[2017-06-20] MEDS ORDERED: Midazolam 1 MG/ML 2 ML SDV ONE (07:00)
[2017-06-20] MEDS ORDERED: fentaNYL 100 MCG/2 ML SDV ONE (07:00)
[2017-06-20] MEDS ORDERED: Glycopyrrolate 0.2 MG/ML 2 ML SDV IVPUSH ONE (07:10)
[2017-06-20] MEDS: Albuterol/Ipratropium 3.0-0.5 MG/3 ML Neb Soln INH SCH ×4 (07:32→21:57)
[2017-06-20] MEDS ORDERED: MVI, Adult with Vitamin K 10 ML, Thiamine 200 MG, Chromium/Copper/Mang/Zinc 1 ML in Dex... IV ONE ×4 (10:00)
--- NOTE | 2017-06-20 10:25 | PN ---
DATE OF SERVICE: 06/20/2017 SUBJECTIVE: Becky advanced her diet at her lunch to step-2. She took one small spoonful of Jell-O and started having dry heaves and did have an emesis. Her diet was decreased to step-1 with mainly ice chips. Vital signs remained stable. Her activity was fair. REVIEW OF SYSTEMS: HEENT: Negative. NECK: Negative. CHEST: No chest pain as long as she is not trying to eat or drink. No fast irregular heart beat. Denies any palpitations. LUNGS: No shortness of breath. ABDOMEN: Continues to have some mid epigastric pain. EXTREMITIES: Trace peripheral edema. No pain or calf tenderness. Remainder of review of systems negative for any pertinent positives and negatives. OBJECTIVE: GENERAL: Becky Perez is a 37-year-old female. Alert and oriented. She is n.p.o. VITAL SIGNS: TPR 96.7, 76, 20. Blood pressure 117/59. HEENT: Negative. NECK: Supple. HEART: Regular rate and rhythm. LUNGS: Clear. ABDOMEN: Midepigastric abdominal tenderness. Incisions well healed. EXTREMITIES: Negative. SCDs have been on. ASSESSMENT: Dysphagia, nausea, vomiting, SP María-en-Y gastric bypass surgery. Elevated INR on admission. PLAN: Orders to be written after EGD with possible dilatation this morning. Orders to be written post EGD. We will evaluate p.r.n. or in a.m. Marybeth Ha PA-C /[id number]
[2017-06-20] MEDS: Venlafaxine 75 MG Cap.ER PO SCH (10:49)
[2017-06-20] MEDS: Loratadine 10 MG Tab.DIS PO SCH (10:49)
[2017-06-20] MEDS: Fluticasone Propionate Nasal Spray 16 GM Bottle NASBOTH SCH (10:49)
[2017-06-20] MEDS ORDERED: Warfarin 2.5 MG Tab PO ONE (13:00)
[2017-06-20] MEDS: Levofloxacin/Dextrose 5%-Water 500 MG in Premix Bag 1 BAG IV SCH (16:27)
[2017-06-20] MEDS: Dextrose 5%-Lactated Ringers 1,000 ML IV SCH (21:44)
[2017-06-20] MEDS ORDERED: Loratadine 10 MG Tab.DIS PO ONE (22:41)
[2017-06-21] MEDS: Hyoscyamine 0.125 MG Tab.SL SL SCH ×4 (04:10→22:25)
[2017-06-21] MEDS: Pantoprazole 40 MG Vial IV SCH (04:10)
[2017-06-21] MEDS: Albuterol/Ipratropium 3.0-0.5 MG/3 ML Neb Soln INH SCH ×4 (07:16→22:25)
--- NOTE | 2017-06-21 09:08 | PN ---
DATE OF SERVICE: 06/21/2017 SUBJECTIVE: Becky is one day after upper endoscopy with dilation. She is tolerating a step-1 with milk, gastric bypass diet. Her oral intake was 1420. She has been up ambulating. Denies any pain. She received 7.5 mg of Coumadin yesterday and her INR is 1.18. She is also on fondaparinux (Arixtra) 10 mg subcu every 24 hours. Becky also has been treated IV with Levaquin and had a reaction to the Levaquin. REVIEW OF SYSTEMS: HEENT: Negative. CONSTITUTIONAL: No fever, chills, night sweats, or fatigue. CHEST: No chest pain, shortness of breath, fast or irregular heart beat. LUNGS: No cough. ABDOMEN: No nausea, vomiting, diarrhea, or constipation. Dysphagia is resolved. : UTI signs and symptoms. EXTREMITIES: Negative, denies. No increase in joint pain due to body habitus. SKIN: Without rash. Remainder of review of systems negative for any pertinent positives or negatives. OBJECTIVE: GENERAL: Becky Perez is a 37-year-old female. Color pale. SKIN: Warm and dry. VITAL SIGNS: TPR 96.6, 67, 18, blood pressure 126/49. HEENT: Negative. NECK: Supple. HEART: Regular rate and rhythm. LUNGS: Clear. ABDOMEN: Soft, nontender. EXTREMITIES: Without peripheral edema. NEUROLOGIC: Intact. PSYCHIATRIC: Mood and affect appropriate. ASSESSMENT: 1. Dysphagia. 2. Nausea and vomiting. 3. Elevated INR in remission. 4. SP María-en-Y gastric bypass surgery, unspecified surgical malabsorption. 5. B12 deficiency. 6. History of pulmonary embolism x2. 7. Chronic anticoagulation therapy. 8. Depression. 9. Anxiety. PLAN: 1. Coumadin 7.5 mg one time today. 2. Teach the patient how to give the subcu fondaparinux (Arixtra). 3. Communication order written to discharge planning, to check with pharmacy in [place], [place] where she got her 1st doses of the fondaparinux (Arixtra) to see if it is available when she is discharged in a.m. Good pulmonary toilet encouraged. To continue to stay on step-1 with milk, gastric bypass diet. 4. We will evaluate p.r.n. or in a.m. Marybeth Norby, PA-C /[id number]
[2017-06-21] MEDS: Cephalexin 250 MG/5 ML Susp 100 ML Bottle PO SCH ×3 (09:17→22:25)
[2017-06-21] MEDS: Venlafaxine 75 MG Cap.ER PO SCH (09:17)
[2017-06-21] MEDS: Fluticasone Propionate Nasal Spray 16 GM Bottle NASBOTH SCH (09:17)
[2017-06-21] MEDS: Loratadine 10 MG Tab.DIS PO SCH (09:17)
[2017-06-21] MEDS: Dextrose 5%-Lactated Ringers 1,000 ML IV SCH ×2 (11:10→16:35)
[2017-06-21] MEDS ORDERED: Warfarin 5 MG Tab PO ONE (13:00)
[2017-06-21] MEDS ORDERED: Warfarin 5 MG, Warfarin 2.5 MG PO ONE ×2 (13:00)
--- NOTE | 2017-06-21 14:23 | PN ---
DATE OF SERVICE: 06/20/2017 The patient underwent an upper endoscopy this morning and had dilation of the stricture. We would begin re-coumadinizing her today. She is allergic to Lovenox and given the fact that she has not had coagulable state, she may be become more hypercoagulable during the re- coumadinization phase. She is allergic to Lovenox and we will start her on fondaparinux 10 mg subcu. We will start the first dose at 6:00 p.m. tonight. Otherwise resume a step-2 diet and we will check a pro time tomorrow and see where we are at with her issue. Demetris Granger MD /[id number]
--- NOTE | 2017-06-21 14:40 | OR ---
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 POSTOPERATIVE DIAGNOSIS: Strictured gastrojejunostomy. OPERATIVE PROCEDURE: Upper GI endoscopy with dilation of gastrojejunostomy ([id number]). ANESTHESIA: IV sedation. INDICATION FOR PROCEDURE: This is a 37-year-old female, 31-day status post a María-en-Y gastric bypass presenting with stricturing at her gastrojejunostomy. Plan is to proceed with upper GI endoscopy with dilation as indicated. Potential risks including bleeding and perforation were discussed, and the patient wishes to proceed. DETAILS OF PROCEDURE: The patient was taken to the operating room and placed in a left lateral decubitus position. IV sedation was administered, after which the upper GI endoscope was passed orally through the length of the esophagus and into the gastric pouch. No retained food or fluid was noted. The patient was noted to have a fairly tight stricture of the gastrojejunostomy. A Bard gastrointestinal catheter was then inflated after being centered across the anastomosis. The first balloon did rupture as it came up against the lisseth and partial dilation was accomplished. Second dilator was then used which created a full 36-Australian dilation and the scope was easily passed through the anastomosis. No complications were noted and the procedure concluded. The patient was taken to the recovery room in satisfactory condition. Demetris Granger MD /[id number]
[2017-06-21] MEDS: Pantoprazole 40 MG Tab.CR PO SCH (16:28)
[2017-06-21] MEDS: Acetaminophen 325 MG Tab PO PRN (23:28)
[2017-06-22] MEDS: Hyoscyamine 0.125 MG Tab.SL SL SCH ×2 (04:46→11:31)
[2017-06-22] MEDS: Cephalexin 250 MG/5 ML Susp 100 ML Bottle PO SCH ×2 (04:46→11:30)
[2017-06-22] MEDS: Albuterol/Ipratropium 3.0-0.5 MG/3 ML Neb Soln INH SCH ×2 (07:26→11:28)
[2017-06-22] MEDS: Acetaminophen 325 MG Tab PO PRN (08:21)
[2017-06-22] MEDS: Venlafaxine 75 MG Cap.ER PO SCH (08:22)
[2017-06-22] MEDS: Pantoprazole 40 MG Tab.CR PO SCH (08:23)
[2017-06-22] MEDS: Fluticasone Propionate Nasal Spray 16 GM Bottle NASBOTH SCH (08:23)
[2017-06-22] MEDS: Loratadine 10 MG Tab.DIS PO SCH (08:23)
[2017-06-22] MEDS ORDERED: Warfarin 2.5 MG Tab PO ONE (10:00)
--- NOTE | 2017-06-22 10:30 | DISCH ---
ADMISSION DIAGNOSES: 1. Dysphagia, nausea, and vomiting. 2. Elevated INR. 3. Status post María-en-Y gastric bypass surgery. 4. Unspecified surgical malabsorption. 5. B12 deficiency. 6. History of bilateral pulmonary embolisms x2. 7. Chronic anticoagulation therapy. DISCHARGE DIAGNOSES: Upper gastrointestinal endoscopy with dilation of gastrojejunostomy for strictured gastrojejunostomy. HISTORY: Becky Perez is a 37-year-old female, 31-day status post gastric bypass, presenting with stricturing at the gastrojejunostomy. After preoperative evaluation and discussion of possible risks and possible complications, she wished to proceed with surgical procedure. HOSPITAL COURSE: Becky was admitted on 06/18/2017. She had an INR from a previous hospital emergency room department of 7.7. She presented to the clinic with persistent, burning, dull midepigastric pain. She was admitted. She was given vitamin K to lower that INR and IV fluids. She was started on a step-1 diet and advanced to step-2 and was unable to tolerate advancement of diet with nausea and vomiting. She had an EGD, which revealed a strictured gastrojejunostomy on 06/20/2017. She was able to be discharged on 06/22/2017 with an INR of 1.21. She also was diagnosed with a bladder infection and will be going home on antibiotics. PHYSICAL EXAMINATION: GENERAL: Becky Perez is a 37-year-old female. VITAL SIGNS: Height is 5 feet 9 inches. Weight is 450 pounds. TPR 96.5, 72, 18, and blood pressure 112/45. HEENT: Negative. NECK: Supple. HEART: Regular rate and rhythm. LUNGS: Clear. ABDOMEN: Soft and nontender. EXTREMITIES: Without peripheral edema. DISPOSITION: Discharged to home. CONDITION: Stable. FOLLOW UP APPOINTMENTS: 1. Marybeth Ha PA-C, on at 10 a.m., to be seen at [facility]. Check INR, PT, CMP, CBC, phosphorus, and magnesium before clinic appointment. 2. Followup for EGD with dilatation on , 06/28/2017 at [facility]. They will call you for time for your procedure. DISCHARGE MEDICATIONS: Home Medications; 1. Cephalexin 250 mg/5 mL, 500 mg oral, q.6 hours for 10 days. 2. Fondaparinux, Arixtra, 10 mg subcu q.24 hours for 4 days starting tomorrow. 3. Hyoscyamine, Levsin, 0.125 mg sublingual every 6 hours scheduled, #50. 4. Coumadin 5 mg daily, #30. 5. Tylenol 650 mg q.6 hours. 6. Albuterol inhaler 2 puffs every 6 hours p.r.n. wheezing. 7. Celebrex 200 mg daily. 8. Omeprazole 20 mg twice daily. 9. Systane lubricant 1 drop to each eye daily. 10.Potassium chloride 10 mEq daily. 11.Effexor 150 mg oral daily. 12.Furosemide, Lasix, 20 mg daily. DISCHARGE DIET: Step-2 gastric bypass diet with no cereal. ACTIVITY: As tolerated. May shower. DISCHARGE INSTRUCTIONS: Notify provider of any nausea or vomiting. Special instruction; keep a food journal and bring to clinic appointments.
== END 2017-06-22 13:55 | disposition home or self-care (01) ==
LOC: JP.2SS 14:15
PROVIDERS: ADMIT Surgery; ATTEND Surgery
DX: K95.89 Other complications of other bariatric procedure (principal); J45.909 Unspecified asthma, uncomplicated; G47.30 Sleep apnea, unspecified; K21.9 Gastro-esophageal reflux disease without esophagitis; F41.9 Anxiety disorder, unspecified; F32.9 Major depressive disorder, single episode, unspecified; E66.9 Obesity, unspecified; Z88.0 Allergy status to penicillin; Z88.1 Allergy status to other antibiotic agents; Z88.2 Allergy status to sulfonamides; Z91.040 Latex allergy status; Z91.018 Allergy to other foods; Z79.01 Long term (current) use of anticoagulants; Z79.899 Other long term (current) drug therapy; Z68.30 Body mass index [BMI] 30.0-30.9, adult; Z87.891 Personal history of nicotine dependence
CPT/HCPCS: 36415; 43245; 80053; 81001; 83735; 84100; 85025; 85610; 87086; 87088; 87186; 94640; 94762; 96361; 96365; 96366; 96367; 96375; 96376; A9270; C9113; G0378; J1652; J1956; J2250; J2405; J2704; J3010; J3411; J3430; J3480; J7030; J7042; J7050; J7120; J7620; J3490

== ENCOUNTER 2017-06-28 05:50 | Day surgery (SDC) | payer MEDICAID ==
[2017-06-28] MEDS ORDERED: Lactated Ringers 1,000 ML IV SCH (07:00)
[2017-06-28] MEDS ORDERED: fentaNYL 100 MCG/2 ML SDV ONE (07:08)
[2017-06-28] MEDS ORDERED: Propofol 200 MG/20 ML SDV ONE (07:09)
[2017-06-28] MEDS ORDERED: Midazolam 1 MG/ML 2 ML SDV ONE (07:09)
[2017-06-28] MEDS ORDERED: Cyanocobalamin (Vitamin B12) 1,000 MCG/ML SDV IM ONE (07:45)
[2017-06-28] MEDS ORDERED: Glycopyrrolate 0.2 MG/ML 2 ML SDV IVPUSH ONE (07:45)
[2017-06-28] MEDS ORDERED: MVI, Adult with Vitamin K 10 ML, Thiamine 200 MG, Chromium/Copper/Mang/Selen/Zn 1 ML in... IV ONE ×4 (08:45)
--- NOTE | 2017-06-28 15:03 | OR ---
DATE OF PROCEDURE: 06/28/2017 PREOPERATIVE DIAGNOSIS: Strictured gastrojejunostomy. POSTOPERATIVE DIAGNOSIS: Strictured gastrojejunostomy. PROCEDURES: Upper GI endoscopy with dilation of gastrojejunostomy (40152). ANESTHESIA: IV sedation. INDICATION FOR PROCEDURE: The patient is status post María-en-Y gastric bypass done as an open procedure on 05/21/2017. She presents now with symptoms of stricturing at her gastrojejunostomy. Plan is to proceed with an upper GI endoscopy with dilation as indicated. Potential risks including bleeding and perforation were discussed, and the patient wishes to proceed. DETAILS OF PROCEDURE: The patient was taken to the operating room and placed in a left lateral decubitus position. IV sedation was administered, after which the upper GI endoscope was passed orally through the length of the esophagus and into the gastric pouch. At the gastrojejunostomy, the patient was noted to have a quite tight stricture. There was no retained food or fluid. Bard gastrointestinal balloon catheter was then centered across the anastomosis and 36-Korean 3 times. By the third time, there was a substantial improvement in the diameter and, at that point, it was felt that further dilation might put her at risk for perforation. Given this, the procedure was then concluded. The patient was taken to the recovery room in a satisfactory condition. The plan will be to repeat an upper GI endoscopy and dilation a week from tomorrow as a scheduled event to try to stay ahead of this process as she has developed quite a bit in the way of dense scarring at the gastrojejunostomy. Demetris Granger MD /[id number]
[2017-06-29] MEDS ORDERED: Warfarin 2 MG Tab PO SCH (13:00)
== END 2017-06-28 11:30 | disposition home or self-care (01) ==
LOC: JP.SDS 05:50
PROVIDERS: ATTEND Surgery
DX: K95.89 Other complications of other bariatric procedure (principal); G47.30 Sleep apnea, unspecified; E66.01 Morbid (severe) obesity due to excess calories; Z88.0 Allergy status to penicillin; Z88.1 Allergy status to other antibiotic agents; Z91.040 Latex allergy status; Z88.2 Allergy status to sulfonamides; Z91.018 Allergy to other foods; Z91.09 Other allergy status, other than to drugs and biological substances
CPT/HCPCS: 36415; 43245; 80053; 83735; 84100; 85610; A9270; J2250; J2704; J3010; J3411; J3420; J7120; J3490

== ENCOUNTER 2017-07-06 07:16 | Day surgery (SDC) | payer MEDICAID ==
[2017-07-06] MEDS ORDERED: Lactated Ringers 1,000 ML IV SCH (08:00)
[2017-07-06] MEDS ORDERED: Cyanocobalamin (Vitamin B12) 1,000 MCG/ML SDV IM ONE (08:00)
[2017-07-06] MEDS ORDERED: Glycopyrrolate 0.2 MG/ML 2 ML SDV IVPUSH ONE (08:00)
[2017-07-06] MEDS ORDERED: Glycopyrrolate 0.2 MG/ML 2 ML SYRINGE IVPUSH ONE (08:45)
[2017-07-06] MEDS ORDERED: MVI, Adult with Vitamin K 10 ML, Thiamine 200 MG, Chromium/Copper/Mang/Selen/Zn 1 ML in... IV ONE ×4 (09:00)
[2017-07-06] MEDS ORDERED: fentaNYL 100 MCG/2 ML SDV ONE (10:25)
[2017-07-06] MEDS ORDERED: Propofol 200 MG/20 ML SDV ONE (10:25)
[2017-07-06] MEDS ORDERED: Midazolam 1 MG/ML 2 ML SDV ONE (10:25)
[2017-07-06] MEDS ORDERED: Warfarin 5 MG Tab PO ONE (12:00)
--- NOTE | 2017-07-08 13:25 | OR ---
DATE OF PROCEDURE: 07/06/2017 PREOPERATIVE DIAGNOSIS: Strictured gastrojejunostomy. POSTOPERATIVE DIAGNOSIS: Strictured gastrojejunostomy. OPERATIVE PROCEDURE: Upper GI endoscopy with dilation of gastrojejunostomy (62184). ANESTHESIA: IV sedation. INDICATION FOR PROCEDURE: The patient presents for a scheduled repeat upper endoscopy for stricturing at her gastrojejunostomy. This was done 1 week ago and it was felt that she would likely benefit from re-dilation at this point. Potential risks including bleeding and perforation were discussed, and the patient wishes to proceed. DETAILS OF PROCEDURE: The patient was taken to the operating room and placed in a left lateral decubitus position. IV sedation was administered, after which the upper GI endoscope was passed orally through the length of the esophagus and into the gastric pouch. No retained food or fluid was noted. The patient was noted to have a moderate stricture of gastrojejunostomy and apart from that, there was not much in the way of acute inflammation. A Bard gastrointestinal balloon catheter was then centered across the anastomosis and inflated to 36-Turkmen size. This was held in position for 1 minute, after which the balloon catheter was deflated and withdrawn. The scope could easily then be passed through the anastomosis. No complications were noted. The scope was then withdrawn, and the procedure concluded. The patient was taken to the recovery room in a satisfactory condition. Demetris Granger MD /[id number]
== END 2017-07-06 12:21 | disposition home or self-care (01) ==
LOC: JP.SDS 07:16
PROVIDERS: ATTEND Surgery
DX: K91.89 Other postprocedural complications and disorders of digestive system (principal); K21.9 Gastro-esophageal reflux disease without esophagitis; F32.9 Major depressive disorder, single episode, unspecified; F41.9 Anxiety disorder, unspecified; G47.33 Obstructive sleep apnea (adult) (pediatric); E66.9 Obesity, unspecified; Z88.0 Allergy status to penicillin; Z88.1 Allergy status to other antibiotic agents; Z88.2 Allergy status to sulfonamides; Z88.8 Allergy status to other drugs, medicaments and biological substances; Z91.040 Latex allergy status; Z91.018 Allergy to other foods
CPT/HCPCS: 36415; 43245; 80053; 85027; 85610; A9270; J2250; J2704; J3010; J3411; J3420; J7120

== ENCOUNTER 2017-07-11 21:00 | Inpatient (IN) | payer MEDICAID ==
[2017-07-11] MEDS ORDERED: MVI, Adult with Vitamin K 10 ML, Thiamine 100 MG, Folic Acid 1 MG, Magnesium Sulfate 3 ... IV SCH ×5 (22:30)
[2017-07-11] MEDS ORDERED: Lactated Ringers 1,000 ML IV SCH (22:30)
--- NOTE | 2017-07-11 23:14 | EDM.PDOC ---
ED HPI GENERAL MEDICAL PROBLEM - General Chief Complaint: General Stated Complaint: DIZZY / LIGHTHEADED Time Seen by Provider: 07/11/17 22:02 Source of Information: Reports: Patient History Limitations: Reports: No Limitations - History of Present Illness INITIAL COMMENTS - FREE TEXT/NARRATIVE: unable to swallow food without nausea and vomiting; this is a 37 year old female presents to ER via friend ROSARIO, reports laying around for the past two days due to nausea and vomiting. she reports has been dizzy and not feeling well since her last UGI with dilation on 07/06/17. She has a headache. tried to eat mashed potatoes yesterday had nausea and vomiting, tried hamburger today with same results. Contacted Dr. Granger's office, advised to come to ER for hospital admission with planned UGI with dilation in am. Gastric bypass on 05-21-17 with a 100 pound weight loss. Onset: Gradual Onset Date: 07/06/17 Duration: Getting Worse Location: Reports: Neck, Abdomen Quality: Reports: Same as Previous Episode Severity: Moderate Improves with: Reports: None Worsens with: Reports: Eating Context: Reports: Other (Gastric bypass 05/21/17) Associated Symptoms: Reports: Nausea/Vomiting - Related Data Allergies Allergy/AdvReac Type Severity Reaction Status Date / Time levofloxacin [From Levaquin] Allergy Mild Redness Verified 07/06/17 08:42 enoxaparin Allergy Rash Verified 07/06/17 08:42 fluvoxamine [From Luvox] Allergy Cannot Verified 07/06/17 08:42 Remember latex Allergy Hives Verified 07/06/17 08:42 mold Allergy Headache Verified 07/06/17 08:42 Penicillins Allergy Edema Verified 07/06/17 08:42 pollen extracts Allergy Cannot Verified 07/06/17 08:42 Remember strawberry Allergy Hives Verified 07/06/17 08:42 Sulfa (Sulfonamide Allergy Itching Verified 07/06/17 08:42 Antibiotics) dust mites Allergy Cannot Uncoded 06/28/17 06:19 Remember Home Meds: Home Meds Albuterol [Ventolin HFA] 2 puff INH Q6HR PRN 05/17/17 [History] Potassium Chloride 10 meq PO DAILY 05/17/17 [History] Venlafaxine [Effexor XR] 150 mg PO DAILY 05/17/17 [History] Acetaminophen [Tylenol] 650 mg PO Q6H cup 05/25/17 [Rx] Warfarin [Coumadin] 5 mg PO DAILY #30 tablet 06/22/17 [Rx] Past Medical History HEENT History: Reports: Impaired Vision, Other (See Below) Other HEENT History: wears glasses Respiratory History: Reports: Asthma, PE, Sleep Apnea Gastrointestinal History: Reports: Colon Polyp, GERD, Hemorrhoids Other Genitourinary History: is taking antibiotics for UTI Musculoskeletal History: Reports: Arthritis, Back Pain, Chronic Neurological History: Reports: Headaches, Chronic, Seizure, Other (See Below) Other Neuro History: seizure after IV steroid Psychiatric History: Reports: ADHD, Anxiety, Depression, PTSD, Suicide Attempt Endocrine/Metabolic History: Reports: Obesity/BMI 30+, Other (See Below) Other Endocrine/Metabolic History: pre diabetic Hematologic History: Reports: Anemia Dermatologic History: Reports: Cellulitis - Infectious Disease History Infectious Disease History: Reports: C-Difficile - Past Surgical History Head Surgeries/Procedures: Reports: None HEENT Surgical History: Reports: None GI Surgical History: Reports: Bariatric Procedure, Cholecystectomy, Colonoscopy , Hernia, Abdominal, Other (See Below) Other GI Surgeries/Procedures: bile leak after cholecystecomy Female Surgical History: Reports: Other (See Below) Other Female Surgeries/Procedures: left breast lump Endocrine Surgical History: Reports: None Neurological Surgical History: Reports: None Musculoskeletal Surgical History: Reports: None Dermatological Surgical History: Reports: None Social & Family History - Family History Family Medical History: Noncontributory - Tobacco Use Smoking Status *Q: Never Smoker Years of Tobacco use: 20 Packs/Tins Daily: 0.5 Used Tobacco, but Quit: Yes Month Tobacco Last Used: may Second Hand Smoke Exposure: No - Caffeine Use Caffeine Use: Reports: None - Recreational Drug Use Recreational Drug Use: No - Living Situation & Occupation Living situation: Reports: Single Occupation: Unemployed (lives alone in [place], [place]. , friend is her ADULT EDUCATOR.) ED [facility] GENERAL - Review of Systems Review Of Systems: See Below Constitutional: Reports: Malaise, Weight Loss (100 pound wt loss since 05-21-17 Gastric bypass surgery.), Other (unable to eat due to nausea and vomiting.) HEENT: Reports: Other (headache ) Respiratory: Reports: No Symptoms Cardiovascular: Reports: No Symptoms Endocrine: Reports: No Symptoms GI/Abdominal: Reports: Abdominal Pain (resolving surgical incision from surgery on 05/21/17), Nausea, Vomiting : Reports: No Symptoms Musculoskeletal: Reports: No Symptoms Skin: Reports: Wound (incisional wound dehesence) Neurological: Reports: Dizziness (since last dilation on 07/06/17), Headache ( for two days), Other Psychiatric: Reports: No Symptoms Hematologic/Lymphatic: Reports: No Symptoms Immunologic: Reports: Food Allergy, Seasonal Allergy, Grass Allergy, Mold Allergy, Pollen Allergy ED EXAM, GENERAL - Physical Exam Exam: See Below Exam Limited By: No Limitations General Appearance: Alert, WD/WN, No Apparent Distress Eye Exam: Bilateral Eye: Normal Inspection Ears: Normal External Exam, Normal Canal, Hearing Grossly Normal, Normal TMs Ear Exam: Bilateral Ear: Canal Normal Nose: Normal Inspection, Normal Mucosa, No Blood Throat/Mouth: Normal Inspection, Normal Lips, Normal Teeth, Normal Gums, Normal Oropharynx, Normal Voice, No Airway Compromise Head: Atraumatic, Normocephalic Neck: Normal Inspection, Supple, Non-Tender, Full Range of Motion Respiratory/Chest: No Respiratory Distress, Lungs Clear, Normal Breath Sounds, No Accessory Muscle Use, Chest Non-Tender Cardiovascular: Normal Peripheral Pulses, Regular Rate, Rhythm, No Edema, No Gallop, No JVD, No Murmur, No Rub GI/Abdominal: Normal Bowel Sounds, Soft, Non-Tender, No Distention, Other ( chronic wound dehiscence) (Female) Exam: Deferred Rectal (Female) Exam: Deferred Back Exam: Normal Inspection Extremities: Normal Inspection, Normal Range of Motion, Non-Tender, Normal Capillary Refill, Pedal Edema Neurological: Alert, Oriented, CN II-XII Intact, Normal Cognition, Normal Gait, Normal Reflexes, No Motor/Sensory Deficits Psychiatric: Normal Affect, Normal Mood Skin Exam: Warm, Dry, Intact, Normal Color, No Rash Lymphatic: No Adenopathy Course - Vital Signs Last Recorded V/S: Last Vital Signs Temp 35.2 C L 07/11/17 21:53 Pulse 70 07/11/17 21:53 Resp 18 07/11/17 21:53 BP 145/53 H 07/11/17 21:53 Pulse Ox 94 L 07/11/17 21:53 - Orders/Labs/Meds Orders: Active Orders 24 hr Category Date Time Status Lactated Ringers [Ringers, Lactated] 1,000 ml Med 07/11/17 22:30 Active IV ASDIRECTED MVI, Adult with Vitamin K [Infuvite Adult] 10 ml Med 07/11/17 22:30 Active Thiamine [Vitamin B-1] 100 mg Folic Acid 1 mg Magnesium Sulfate [Magnesium Sulfate 50%] 3 gm Sodium Chloride 0.9% [Normal Saline] 1,000 ml IV ASDIRECTED Medication Orders Multivitamins/Minerals 10 ml/Thiamine HCl 100 mg/ Folic Acid 1 mg/ Magnesium Sulfate 3 gm/ Sodium Chloride 1,017.2 mls @ 999 mls/hr IV ASDIRECTED TUCKER Lactated Ringer's (Ringers, Lactated) 1,000 mls @ 333 mls/hr IV ASDIRECTED [facility] Meds: Medications Generic Name Dose Route Start Last Admin Trade Name Freq PRN Reason Stop Dose Admin Multivitamins/Minerals 10 ml/ 1,017.2 mls @ 999 mls/hr 07/11/17 22:30 Thiamine HCl 100 mg/ Folic IV Acid 1 mg/ Magnesium Sulfate 3 ASDIRECTED TUCKER gm/ Sodium Chloride Lactated Ringer's 1,000 mls @ 333 mls/hr 07/11/17 22:30 Ringers, Lactated IV ASDIRECTED TUCKER Departure - Departure Time of Disposition: 23:29 Disposition: Admitted As Inpatient 65 Condition: Good Clinical Impression: Dysphasia, Nausea & vomiting, Hx of gastric bypass - Discharge Information - My Orders Last 24 Hours: My Active Orders 07/11/17 22:30 Lactated Ringers [Ringers, Lactated] 1,000 ml IV ASDIRECTED MVI, Adult with Vitamin K [Infuvite Adult] 10 ml Thiamine [Vitamin B-1] 100 mg Folic Acid 1 mg Magnesium Sulfate [Magnesium Sulfate 50%] 3 gm Sodium Chloride 0.9% [Normal Saline] 1,000 ml IV ASDIRECTED - Assessment/Plan Last 24 Hours: My Active Orders 07/11/17 22:30 Lactated Ringers [Ringers, Lactated] 1,000 ml IV ASDIRECTED MVI, Adult with Vitamin K [Infuvite Adult] 10 ml Thiamine [Vitamin B-1] 100 mg Folic Acid 1 mg Magnesium Sulfate [Magnesium Sulfate 50%] 3 gm Sodium Chloride 0.9% [Normal Saline] 1,000 ml IV ASDIRECTED
--- NOTE | 2017-07-11 23:49 | PCM.HP ---
H&P History of Present Illness - General Date of Service: 07/11/17 Admit Problem/Dx: Admission Diagnosis/Problem Admission Diagnosis/Problem Dysphagia Source of Information: Patient History Limitations: Reports: No Limitations - History of Present Illness Initial Comments - Free Text/Narative: unable to swallow food without nausea and vomiting; this is a 37 year old female presents to ER via friend ROSARIO, reports laying around for the past two days due to nausea and vomiting. she reports has been dizzy and not feeling well since her last UGI with dilation on 07/06/17. She has a headache. tried to eat mashed potatoes yesterday had nausea and vomiting, tried hamburger today with same results. Contacted Dr. Granger's office, advised to come to ER for hospital admission with planned UGI with dilation in am. Gastric bypass on 05-21-17 with a 100 pound weight loss. Onset: Gradual Onset of Symptoms: Reports: Gradual Symptom Onset Date: 07/06/17 Duration of Symptoms: Reports: Getting Worse Location: Reports: Other (unable to eat due to nausea/vomiting. hx gastric bypass 05-21-17) Quality: Reports: Same as Previous Episode Severity: Severe Improves with: Reports: None Worsens with: Reports: Eating Context: Reports: Other (hx of gastric bypass, with last UGI with dilation on ) Associated Symptoms: Reports: Nausea/Vomiting, Weakness, Other (dizziness) headache Pain Score (Numeric/FACES): 8 - Related Data Allergies/Adverse Reactions: Allergies Allergy/AdvReac Type Severity Reaction Status Date / Time levofloxacin [From Levaquin] Allergy Mild Redness Verified 07/06/17 08:42 enoxaparin Allergy Rash Verified 07/06/17 08:42 fluvoxamine [From Luvox] Allergy Cannot Verified 07/06/17 08:42 Remember latex Allergy Hives Verified 07/06/17 08:42 mold Allergy Headache Verified 07/06/17 08:42 Penicillins Allergy Edema Verified 07/06/17 08:42 pollen extracts Allergy Cannot Verified 07/06/17 08:42 Remember strawberry Allergy Hives Verified 07/06/17 08:42 Sulfa (Sulfonamide Allergy Itching Verified 07/06/17 08:42 Antibiotics) dust mites Allergy Cannot Uncoded 06/28/17 06:19 Remember Home Medications: Home Meds Albuterol [Ventolin HFA] 2 puff INH Q6HR PRN 05/17/17 [History] Potassium Chloride 10 meq PO DAILY 05/17/17 [History] Venlafaxine [Effexor XR] 150 mg PO DAILY 05/17/17 [History] Acetaminophen [Tylenol] 650 mg PO Q6H cup 05/25/17 [Rx] Warfarin [Coumadin] 5 mg PO DAILY #30 tablet 06/22/17 [Rx] Past Medical History HEENT History: Reports: Impaired Vision, Other (See Below) Other HEENT History: wears glasses Respiratory History: Reports: Asthma, PE, Sleep Apnea Gastrointestinal History: Reports: Colon Polyp, GERD, Hemorrhoids Other Genitourinary History: is taking antibiotics for UTI Musculoskeletal History: Reports: Arthritis, Back Pain, Chronic Neurological History: Reports: Headaches, Chronic, Seizure, Other (See Below) Other Neuro History: seizure after IV steroid Psychiatric History: Reports: ADHD, Anxiety, Depression, PTSD, Suicide Attempt Endocrine/Metabolic History: Reports: Obesity/BMI 30+, Other (See Below) Other Endocrine/Metabolic History: pre diabetic Hematologic History: Reports: Anemia Dermatologic History: Reports: Cellulitis - Infectious Disease History Infectious Disease History: Reports: C-Difficile - Past Surgical History Head Surgeries/Procedures: Reports: None HEENT Surgical History: Reports: None GI Surgical History: Reports: Bariatric Procedure, Cholecystectomy, Colonoscopy , Hernia, Abdominal, Other (See Below) Other GI Surgeries/Procedures: bile leak after cholecystecomy Female Surgical History: Reports: Other (See Below) Other Female Surgeries/Procedures: left breast lump Endocrine Surgical History: Reports: None Neurological Surgical History: Reports: None Musculoskeletal Surgical History: Reports: None Dermatological Surgical History: Reports: None Social & Family History - Family History Family Medical History: Noncontributory - Tobacco Use Smoking Status *Q: Never Smoker Years of Tobacco use: 20 Packs/Tins Daily: 0.5 Used Tobacco, but Quit: Yes Month Tobacco Last Used: may Second Hand Smoke Exposure: No - Caffeine Use Caffeine Use: Reports: None - Recreational Drug Use Recreational Drug Use: No - Living Situation & Occupation Living situation: Reports: Single Occupation: Unemployed (lives alone in [facility] , friend is her SALES AND SERVICE REPRESENTATIVE.) H&P Review of Systems - Review of Systems: Review Of Systems: See Below General: Reports: Weakness, Other (diziness. ) HEENT: Reports: Headaches Pulmonary: Reports: No Symptoms Cardiovascular: Reports: No Symptoms Gastrointestinal: Reports: Decreased Appetite, Difficulty Swallowing, Nausea, Vomiting Genitourinary: Reports: No Symptoms Musculoskeletal: Reports: No Symptoms Skin: Reports: No Symptoms Psychiatric: Reports: No Symptoms Neurological: Reports: Dizziness, Headache, Weakness Hematologic/Lymphatic: Reports: No Symptoms Immunologic: Reports: No Symptoms Exam - Exam Exam: See Below - Vital Signs Vital Signs: Last Vital Signs Temp 35.2 C L 07/11/17 21:53 Pulse 70 07/11/17 21:53 Resp 18 07/11/17 21:53 BP 145/53 H 07/11/17 21:53 Pulse Ox 94 L 07/11/17 21:53 Weight: 190.8 kg - Exam General: Alert, Oriented, Cooperative, Mild Distress HEENT: PERRLA, Conjunctiva Clear, EACs Clear, EOMI, Hearing Intact, Mucosa Moist & [place], Nares Patent, Normal Nasal Septum, Posterior Pharynx Clear, Pupils Equal, Pupils Reactive, TMs Clear Neck: Supple, Trachea Midline, 2 Lungs: Clear to Auscultation, Normal Respiratory Effort GI/Abdominal Exam: Normal Bowel Sounds, Soft, Non-Tender, Other (bandage over incision due to wound dehiscence) (Female) Exam: Deferred Rectal (Female) Exam: Deferred Back Exam: Normal Inspection, Full Range of Motion, NT Extremities: Normal Range of Motion, Normal Capillary Refill, Pedal Edema Skin: Warm, Dry, Intact, Wound (old incisional wound.) Neurological: Reflexes Equal Bilateral, Strength Equal Bilateral, Normal Gait, Normal Speech, Normal Tone Neuro Extensive - Mental Status: Alert, Oriented x3, Normal Mood/Affect, Normal Cognition Neuro Extensive - Motor, Sensory, Reflexes: CN II-XII Intact, Normal Gait, Normal Reflexes - Patient Data Lab Results Last 24 hrs: Laboratory Results - last 24 hr 07/11/17 07/11/17 07/11/17 Range/Units 22:35 22:35 22:35 WBC 5.4 (4.5-11.0) K/uL RBC 4.75 (3.30-5.50) M/uL Hgb 11.5 L (12.0-15.0) g/dL Hct 38.1 (36.0-48.0) % MCV 80 (80-98) fL MCH 24 L (27-31) pg MCHC 30 L (32-36) % Plt Count 276 (150-400) K/uL Neut % (Auto) 58 (36-66) % Lymph % (Auto) 28 (24-44) % Saline % (Auto) 10 H (2-6) % Eos % (Auto) 3 (2-4) % Baso % (Auto) 1 (0-1) % PT 22.9 H (9.5-12.0) sec INR 2.08 H (0.80-1.20) Sodium 139 L (140-148) mmol/L Potassium 3.6 (3.6-5.2) mmol/L Chloride 103 (100-108) mmol/L Carbon Dioxide 29 (21-32) mmol/L Anion Gap 10.6 (5.0-14.0) mmol/L BUN 9 (7-18) mg/dL Creatinine 0.9 (0.6-1.0) mg/dL Est Cr Clr Drug Dosing 88.57 mL/min Estimated GFR (MDRD) > 60 (>60) Glucose 97 (74-106) mg/dL Calcium 8.9 (8.5-10.1) mg/dL Result Diagrams: 07/11/17 22:35 07/11/17 22:35 *Q Meaningful Use (ADM) - VTE *Q VTE Criteria *Q: - Stroke *Q Stroke Criteria *Q: - AMI *Q AMI Criteria *Q: - Problem List (1) Dysphasia SNOMED Code(s): 39156501 ICD Code: R47.02 - DYSPHASIA Status: Acute Priority: High Current Visit : Yes (2) Hx of gastric bypass SNOMED Code(s): 439336933 ICD Code: Z98.84 - BARIATRIC SURGERY STATUS Status: Acute Priority: High Current Visit: Yes (3) Nausea & vomiting SNOMED Code(s): 03935448 ICD Code: R11.2 - NAUSEA WITH VOMITING, UNSPECIFIED Status: Acute Current Visit: Yes Qualifiers: Vomiting type: unspecified Vomiting Intractability: non-intractable Qualified Code(s): R11.2 - Nausea with vomiting, unspecified (4) Hx pulmonary embolism SNOMED Code(s): 567703386 ICD Code: Z86.711 - PERSONAL HISTORY OF PULMONARY EMBOLISM Status: Chronic Priority: Medium Current Visit: No Onset Date: ~05/17/17 Problem List Initiated/Reviewed/Updated: Yes Orders Last 24hrs: Active Orders 24 hr Category Date Time Status Resuscitation Status Routine Resus Stat 07/11/17 22:30 Ordered Medication Orders Multivitamins/Minerals 10 ml/Thiamine HCl 100 mg/ Folic Acid 1 mg/ Magnesium Sulfate 3 gm/ Sodium Chloride 1,017.2 mls @ 999 mls/hr IV ASDIRECTED [facility] Lactated Ringer's (Ringers, Lactated) 1,000 mls @ 333 mls/hr IV ASDIRECTED [facility] Last Admin: 07/11/17 23:41 Dose: 333 mls/hr Assessment/Plan Comment:: ASSESSMENT / PLAN unable to swallow food without nausea and vomiting; this is a 37 year old female presents to ER via friend POV, reports laying around for the past two days due to nausea and vomiting. she reports has been dizzy and not feeling well since her last UGI with dilation on 07/06/17. She has a headache. tried to eat mashed potatoes yesterday had nausea and vomiting, tried hamburger today with same results. Contacted Dr. Granger's office, advised to come to ER for hospital admission with planned UGI with dilation in am. Gastric bypass on 05-21-17 with a 100 pound weight loss. Plan Dysphasia with nausea and vomiting, Gastric Bypass patient -Admit Observation to [address] [place] [address] for further monitoring -IV Banana bag x1, IV 1 liter LR over 3 hours then maintenance dose -IV fluids for rehydration LR at 125 mL per hour -order anti-emetics -order for pain control -Advise to notify nurses of any chest pain or other symptoms -And a.m. labs: CBC, BMP HX of PE -hold Coumadin til after surgery -Coumadin 5mg po daily -INR 2.08 Maintenance issues -Orders home meds: hold til after surgery -Nutrition: NPO -Arora catheter not indicated at this time -DVT: SCD -GI Prophalaxis; IV Protonix 40mg daily -consult; Spiritual; prayers CODE STATUS: Full Admission status: Admit to Observation -I expect this patient to stay less than 24 hours, not to exceed 96 hours for evaluation and management of this problem. Disposition: home Primary care provider: Dr.Daniel Granger Hospitalist: Dr. Brock
[2017-07-11] MEDS ORDERED: Zolpidem 5 MG Tab PO PRN (23:52)
[2017-07-11] MEDS ORDERED: Pantoprazole 40 MG Vial IV ONE (23:52)
[2017-07-11] MEDS ORDERED: Albuterol 0.083% 2.5 MG/3 ML Neb Soln NEB PRN (23:52)
[2017-07-11] MEDS ORDERED: LORazepam 2 MG/ML MDV IV PRN (23:52)
[2017-07-11] MEDS ORDERED: Docusate Sodium 100 MG Cap PO PRN (23:52)
[2017-07-12] MEDS ORDERED: Acetaminophen 500 MG Tab ONE (01:21)
[2017-07-12] MEDS: Acetaminophen 500 MG Tab PO PRN ×2 (01:22→19:28)
--- NOTE | 2017-07-12 08:46 | PCM.HP ---
H&P History of Present Illness - General Admit Problem/Dx: Admission Diagnosis/Problem Admission Diagnosis/Problem Dysphagia Source of Information: Patient History Limitations: Reports: No Limitations - History of Present Illness Initial Comments - Free Text/Narative: Becky has trouble with getting enough fluids and protein due to nausea and vomiting. She was scheduled for an EGD on 07/12/17 but was too weak and could not get out of bed all day 07/11/17 so came to the ED yesterday. Onset of Symptoms: Reports: Gradual Severity: Mild Improves with: Reports: Eating, Other (fluids) Worsens with: Reports: Eating Associated Symptoms: Reports: Loss of Appetite, Weakness headache Pain Score (Numeric/FACES): 2 - Related Data Allergies/Adverse Reactions: Allergies Allergy/AdvReac Type Severity Reaction Status Date / Time levofloxacin [From Levaquin] Allergy Mild Redness Verified 07/06/17 08:42 enoxaparin Allergy Rash Verified 07/06/17 08:42 fluvoxamine [From Luvox] Allergy Cannot Verified 07/06/17 08:42 Remember latex Allergy Hives Verified 07/06/17 08:42 mold Allergy Headache Verified 07/06/17 08:42 Penicillins Allergy Edema Verified 07/06/17 08:42 pollen extracts Allergy Cannot Verified 07/06/17 08:42 Remember strawberry Allergy Hives Verified 07/06/17 08:42 Sulfa (Sulfonamide Allergy Itching Verified 07/06/17 08:42 Antibiotics) dust mites Allergy Cannot Uncoded 06/28/17 06:19 Remember Home Medications: Home Meds Albuterol [Ventolin HFA] 2 puff INH Q6HR PRN 05/17/17 [History] Venlafaxine [Effexor XR] 150 mg PO DAILY 05/17/17 [History] Acetaminophen [Tylenol] 650 mg PO Q6H cup 05/25/17 [Rx] Warfarin [Coumadin] 5 mg PO DAILY #30 tablet 06/22/17 [Rx] Furosemide [Lasix] 20 mg PO DAILY 07/12/17 [History] Potassium Chloride [Klor-Con 10] 1 tab PO DAILY 07/12/17 [History] Past Medical History HEENT History: Reports: Impaired Vision, Other (See Below) Other HEENT History: wears glasses Cardiovascular History: Reports: Other (See Below) Other Cardiovascular History: bilateral corotid artery disease Respiratory History: Reports: Asthma, PE, Sleep Apnea Gastrointestinal History: Reports: Colon Polyp, GERD, Hemorrhoids Other Genitourinary History: is taking antibiotics for UTI Musculoskeletal History: Reports: Arthritis, Back Pain, Chronic Neurological History: Reports: Headaches, Chronic, Seizure, Other (See Below) Other Neuro History: seizure after IV steroid Psychiatric History: Reports: ADHD, Anxiety, Depression, PTSD, Suicide Attempt Endocrine/Metabolic History: Reports: Obesity/BMI 30+, Other (See Below) Other Endocrine/Metabolic History: pre diabetic Hematologic History: Reports: Anemia Dermatologic History: Reports: Cellulitis - Infectious Disease History Infectious Disease History: Reports: C-Difficile - Past Surgical History Head Surgeries/Procedures: Reports: None HEENT Surgical History: Reports: None GI Surgical History: Reports: Bariatric Procedure, Cholecystectomy, Colonoscopy , Hernia, Abdominal, Other (See Below) Other GI Surgeries/Procedures: bile leak after cholecystecomy Female Surgical History: Reports: Other (See Below) Other Female Surgeries/Procedures: left breast lump Endocrine Surgical History: Reports: None Neurological Surgical History: Reports: None Musculoskeletal Surgical History: Reports: None Dermatological Surgical History: Reports: None Social & Family History - Family History Family Medical History: Noncontributory - Tobacco Use Smoking Status *Q: Never Smoker Years of Tobacco use: 20 Packs/Tins Daily: 0.5 Used Tobacco, but Quit: Yes Month Tobacco Last Used: may Second Hand Smoke Exposure: No - Caffeine Use Caffeine Use: Reports: None - Recreational Drug Use Recreational Drug Use: No - Living Situation & Occupation Living situation: Reports: Single Occupation: Unemployed (lives alone in [place], [place]. , friend is her [employer].) H&P Review of Systems - Review of Systems: Review Of Systems: See Below General: Reports: Weakness, Fatigue, Decreased Appetite HEENT: Reports: No Symptoms Pulmonary: Reports: No Symptoms Cardiovascular: Reports: No Symptoms Gastrointestinal: Reports: Nausea, Vomiting Genitourinary: Reports: No Symptoms Musculoskeletal: Reports: No Symptoms Skin: Reports: No Symptoms Psychiatric: Reports: No Symptoms Neurological: Reports: Dizziness, Weakness Hematologic/Lymphatic: Reports: No Symptoms Immunologic: Reports: No Symptoms Exam - Exam Exam: See Below - Vital Signs Vital Signs: Last Vital Signs Temp 96.7 F 07/12/17 07:35 Pulse 59 L 07/12/17 07:35 Resp 18 07/12/17 07:35 BP 105/50 L 07/12/17 07:35 Pulse Ox 96 07/12/17 07:35 Weight: 420 lb 10.272 oz - Exam Quality Assessment: DVT Prophylaxis General: Alert, Oriented, Cooperative HEENT: PERRLA Neck: Supple, Trachea Midline Lungs: Clear to Auscultation, Normal Respiratory Effort Cardiovascular: Regular Rate, Regular Rhythm GI/Abdominal Exam: Soft, Non-Tender (Female) Exam: Deferred Rectal (Female) Exam: Deferred Back Exam: Normal Inspection, Full Range of Motion Extremities: Normal Inspection, Normal Range of Motion Skin: Warm, Dry, Intact Neurological: Cranial Nerves Intact, Reflexes Equal Bilateral Neuro Extensive - Mental Status: Alert, Oriented x3, Normal Mood/Affect Neuro Extensive - Motor, Sensory, Reflexes: CN II-XII Intact, Normal Gait Psychiatric: Alert, Normal Affect, Normal Mood - Patient Data Lab Results Last 24 hrs: Laboratory Results - last 24 hr 07/11/17 07/11/17 07/11/17 Range/Units 22:35 22:35 22:35 WBC 5.4 (4.5-11.0) K/uL RBC 4.75 (3.30-5.50) M/uL Hgb 11.5 L (12.0-15.0) g/dL Hct 38.1 (36.0-48.0) % MCV 80 (80-98) fL MCH 24 L (27-31) pg MCHC 30 L (32-36) % Plt Count 276 (150-400) K/uL Neut % (Auto) 58 (36-66) % Lymph % (Auto) 28 (24-44) % [place] % (Auto) 10 H (2-6) % Eos % (Auto) 3 (2-4) % Baso % (Auto) 1 (0-1) % PT 22.9 H (9.5-12.0) sec INR 2.08 H (0.80-1.20) Sodium 139 L (140-148) mmol/L Potassium 3.6 (3.6-5.2) mmol/L Chloride 103 (100-108) mmol/L Carbon Dioxide 29 (21-32) mmol/L Anion Gap 10.6 (5.0-14.0) mmol/L BUN 9 (7-18) mg/dL Creatinine 0.9 (0.6-1.0) mg/dL Est Cr Clr Drug Dosing 88.57 mL/min Estimated GFR (MDRD) > 60 (>60) Glucose 97 (74-106) mg/dL Calcium 8.9 (8.5-10.1) mg/dL Result Diagrams: 07/11/17 22:35 07/11/17 22:35 *Q Meaningful Use (ADM) - VTE *Q VTE Criteria *Q: - Stroke *Q Stroke Criteria *Q: - AMI *Q AMI Criteria *Q: Problem List Initiated/Reviewed/Updated: Yes Orders Last 24hrs: Active Orders 24 hr Category Date Time Status Patient Status [ADT] Routine ADT 07/11/17 23:52 Active Ambulate [RC] QID Care 07/11/17 23:52 Active Intake and Output [RC] QSHIFT Care 07/11/17 23:52 Active Notify Provider Consults [RC] ASDIRECTED Care 07/11/17 23:52 Active Notify Provider Vital Signs [RC] ASDIRECTED Care 07/11/17 23:52 Active Oxygen Therapy [RC] PRN Care 07/11/17 23:52 Active Pulse Oximetry [RC] PRN Care 07/11/17 23:52 Active RT Aerosol Therapy [RC] ASDIRECTED Care 07/11/17 23:52 Active Up ad Naina [RC] ASDIRECTED Care 07/11/17 23:52 Active VTE/DVT Education [RC] Per Unit Routine Care 07/11/17 23:52 Active Vital Signs [RC] Q4H Care 07/11/17 23:52 Active Consult to Case Management [CONS] Routine Cons 07/12/17 08:38 Ordered Consult to Physician [CONS] Routine Cons 07/11/17 23:52 Ordered Consult to Spiritual Care [CONS] Routine Cons 07/11/17 23:52 Active Nothing per Oral After Midnight Diet [DIET] Diet 07/11/17 Breakfast Active Acetaminophen [Tylenol Extra Strength] Med 07/12/17 00:46 Active 1,000 mg PO Q6H PRN Albuterol [Proventil Neb Soln] Med 07/11/17 23:52 Active 2.5 mg NEB Q4H PRN Docusate Sodium [Colace] Med 07/11/17 23:52 Active 100 mg PO BID PRN LORazepam [Ativan] Med 07/11/17 23:52 Active 1 mg IV Q6H PRN Lactated Ringers [Ringers, Lactated] 1,000 ml Med 07/12/17 03:45 Active IV ASDIRECTED Zolpidem [Ambien] Med 07/11/17 23:52 Active 5 mg PO BEDTIME PRN Sequential Compression Device [OM.PC] Per Unit Routine Oth 07/11/17 23:52 Ordered Resuscitation Status Routine Resus Stat 07/11/17 22:30 Ordered Medication Orders Acetaminophen (Tylenol Extra Strength) 1,000 mg PO Q6H PRN PRN Reason: Pain Last Admin: 07/12/17 01:22 Dose: 1,000 mg Albuterol (Proventil Neb Soln) 2.5 mg NEB Q4H PRN PRN Reason: Shortness Of Breath/wheezing Docusate Sodium (Colace) 100 mg PO BID PRN PRN Reason: Constipation Lactated Ringer's (Ringers, Lactated) 1,000 mls @ 150 mls/hr IV ASDIRECTED TUCKER Lorazepam (Ativan) 1 mg IV Q6H PRN PRN Reason: Nausea/Vomiting Zolpidem Tartrate (Ambien) 5 mg PO BEDTIME PRN PRN Reason: Sleep Assessment/Plan Comment:: ASSESSMENT / PLAN 1. Dehydration 2. Nausea and Vomiting 3. Dysphagia 4. Chronic Anticoagulation Therapy for history of Pulmonary Embolism 5. SP RNY Gastric Bypass Surgery 6. Morbid Obesiy - BMI 62 CODE STATUS: Full Admission status: Admit to Inpatient Plan: Consult to Discharge Planning for management of going into an assisted living or rehab facility. Orders to be written after EGD Disposition: home Primary care provider: Dr.Daniel Granger Hospitalist: Dr. Vinod Howe 07/12/17
[2017-07-12] MEDS ORDERED: Midazolam 1 MG/ML 2 ML SDV ONE (10:06)
[2017-07-12] MEDS ORDERED: Propofol 200 MG/20 ML SDV ONE (10:06)
[2017-07-12] MEDS ORDERED: fentaNYL 100 MCG/2 ML SDV ONE (10:06)
[2017-07-12] MEDS ORDERED: Glycopyrrolate 0.2 MG/ML 2 ML SYRINGE IVPUSH ONE (10:15)
[2017-07-12] MEDS: Lactated Ringers 1,000 ML IV SCH ×3 (10:21→22:43)
[2017-07-12] MEDS ORDERED: Warfarin 5 MG Tab PO ONE (14:30)
[2017-07-12] MEDS: Venlafaxine 75 MG Cap.ER PO SCH (16:28)
[2017-07-13] MEDS: Acetaminophen 500 MG Tab PO PRN (00:58)
[2017-07-13] MEDS: Lactated Ringers 1,000 ML IV SCH (05:30)
[2017-07-13] MEDS: Venlafaxine 75 MG Cap.ER PO SCH (10:20)
--- NOTE | 2017-07-13 12:03 | DISCH ---
ADMISSION DIAGNOSES: Dehydration, persistent nausea and vomiting, dysphagia, SP María-en-Y gastric bypass surgery, unspecified surgical malabsorption, B12 deficiency, chronic anticoagulation therapy, history of 2 pulmonary embolisms, morbid obesity. DISCHARGE DIAGNOSIS: SP EGD with stricture. HISTORY: Becky Perez was admitted on 07/11/2017 after preoperative evaluation and discussion of possible risks and possible complications, she wished to proceed with surgical procedure. HOSPITAL COURSE: Becky Perez was admitted on 07/11/2017 for above chief complaint. She had an EGD on 07/12/2017. On 07/13/2017, she was ready to be discharged without any complications. PHYSICAL EXAMINATION: GENERAL: Becky Perez is a 37-year-old female. VITAL SIGNS: Height is 5 feet 9 inches. Weight is 420 pounds. BMI is 62. TPR 96.9, 58, 18. Blood pressure 107/48. HEENT: Negative. NECK: Supple. HEART: Regular rate and rhythm. LUNGS: Clear. ABDOMEN: Soft and nontender. EXTREMITIES: Without peripheral edema. NEURO: Intact. PSYCHIATRIC: Mood and affect appropriate. DISPOSITION: Discharged to home with home health care and physical therapy. CONDITION: Stable and improving. FOLLOWUP APPOINTMENT: Marybeth Ha PA-C on 07/17/2017 at 11 a.m., [place], [place]. Check PT, INR, and CMP prior to appointment. DISCHARGE DIET: Step-2 gastric bypass diet. She is to walk 6 times daily and follow directions of Physical Therapy. SPECIAL INSTRUCTIONS: 1. Drink 3 med cups every hour or 1 med cup every 20 minutes, total of 64 ounces a day of water or clear liquids. 2. Eat protein every 2 hours, a total of 65 g a day. 3. Try to get on a regular schedule of getting up in the morning and going to bed. 4. Keep a food and liquid journal and bring to clinic appointments. MEDICATIONS: She is to resume her home medications as directed. Tylenol Extra Strength 650 q.6 hours, albuterol inhaler as directed, Colace 100 mg b.i.d., furosemide 20 mg daily, potassium chloride 10 mEq daily, Effexor 75 mg p.o. b.i.d., Coumadin 5 mg daily.
[2017-07-13] MEDS ORDERED: Warfarin 5 MG Tab PO SCH (13:00)
--- NOTE | 2017-07-22 14:21 | OR ---
DATE OF PROCEDURE: 07/12/2017 PREOPERATIVE DIAGNOSIS: Strictured gastrojejunostomy. POSTOPERATIVE DIAGNOSIS: Strictured gastrojejunostomy. PROCEDURE PERFORMED: Upper GI endoscopy with dilation of gastrojejunostomy (83006). ANESTHESIA: IV sedation. INDICATION FOR PROCEDURE: The patient once again presents with symptoms suggestive of stricturing of the gastrojejunostomy. Plan is to proceed with upper GI endoscopy with dilation as indicated. Potential risks including bleeding and perforation were discussed, and the patient wishes to proceed. PROCEDURE IN DETAIL: The patient was taken to the operating room and placed in a left lateral decubitus position. IV sedation was administered, after which the upper GI endoscope was passed orally through the length of the esophagus and into the gastric pouch. No retained food or fluid was noted. The patient was noted to have fairly marked stricture of the gastrojejunostomy. Bard gastrointestinal balloon catheter was then centered across the anastomosis and inflated to 36-Luxembourgish size. This was held in position for 1 minute after which the balloon catheter was deflated and withdrawn. The scope could easily then be passed through the anastomosis. No complications were noted, and the patient was taken to the recovery room in satisfactory condition. Demetris Granger MD /[id number]
== END 2017-07-13 14:30 | disposition home health service (06) | DRG 392 ==
LOC: JP.ED 21:00 → JP.2SS 22:25 → OBSVTOIN 07-12 09:02
PROVIDERS: ADMIT Internal Medicine; ATTEND Surgery
PROC: 0D7A8ZZ Dilation of Jejunum, Via Natural or Artificial Opening Endoscopic (ICD-10-PCS; principal; 2017-07-12)
PROC: 0D768ZZ Dilation of Stomach, Via Natural or Artificial Opening Endoscopic (ICD-10-PCS; 2017-07-12)
DX: K31.89 Other diseases of stomach and duodenum (principal); K56.699 Other intestinal obstruction unspecified as to partial versus complete obstruction; K91.2 Postsurgical malabsorption, not elsewhere classified; Z68.44 Body mass index [BMI] 60.0-69.9, adult; R47.02 Dysphasia; R11.2 Nausea with vomiting, unspecified; E86.0 Dehydration; E66.01 Morbid (severe) obesity due to excess calories; E53.8 Deficiency of other specified B group vitamins; Z98.84 Bariatric surgery status; Z98.0 Intestinal bypass and anastomosis status; F41.9 Anxiety disorder, unspecified; F32.9 Major depressive disorder, single episode, unspecified; M19.90 Unspecified osteoarthritis, unspecified site; M54.9 Dorsalgia, unspecified; G89.29 Other chronic pain; Z86.711 Personal history of pulmonary embolism; J45.909 Unspecified asthma, uncomplicated; H54.7 Unspecified visual loss; Z87.891 Personal history of nicotine dependence; Z91.5 Personal history of self-harm; Z91.040 Latex allergy status; Z91.018 Allergy to other foods; Z88.0 Allergy status to penicillin; Z88.2 Allergy status to sulfonamides; Z88.8 Allergy status to other drugs, medicaments and biological substances; Z79.01 Long term (current) use of anticoagulants; Z91.048 Other nonmedicinal substance allergy status
CPT/HCPCS: 36415; 80048; 85025; 85610; 96361; 96365; 96375; 99285-25; A9270-GY; C9113; G0378; J2250; J2704; J3010; J3411; J3475; J3490; J7040; J7120

== ENCOUNTER 2017-07-19 07:58 | Day surgery (SDC) | payer MEDICAID ==
[2017-07-19] MEDS ORDERED: Lactated Ringers 1,000 ML IV SCH (08:15)
[2017-07-19] MEDS ORDERED: Cyanocobalamin (Vitamin B12) 1,000 MCG/ML SDV IM ONE (08:45)
[2017-07-19] MEDS ORDERED: Glycopyrrolate 0.2 MG/ML 2 ML SYRINGE IVPUSH ONE (08:45)
[2017-07-19] MEDS ORDERED: MVI, Adult with Vitamin K 10 ML, Thiamine 200 MG, Chromium/Copper/Mang/Selen/Zn 1 ML in... IV ONE ×4 (09:15)
[2017-07-19] MEDS ORDERED: Midazolam 1 MG/ML 2 ML SDV ONE (10:34)
[2017-07-19] MEDS ORDERED: fentaNYL 100 MCG/2 ML SDV ONE (10:34)
[2017-07-19] MEDS ORDERED: Propofol 200 MG/20 ML SDV ONE (10:34)
--- NOTE | 2017-07-24 07:41 | OR ---
DATE OF PROCEDURE: 07/19/2017 PREOPERATIVE DIAGNOSIS: Stricture at gastrojejunostomy. POSTOPERATIVE DIAGNOSIS: Stricture at gastrojejunostomy. PROCEDURE: Upper GI endoscopy with dilation of gastrojejunostomy (00526). ANESTHESIA: IV sedation. INDICATIONS FOR PROCEDURE: This is a 37-year-old presenting once again with symptoms of stricturing at her gastrojejunostomy. Plan is to proceed with upper GI endoscopy with dilation as indicated. Potential risks including bleeding and perforation were discussed, and the patient wishes to proceed. DETAILS OF THE PROCEDURE: The patient was taken to the operating room and placed in the left lateral decubitus position. IV sedation was administered, after which the upper GI endoscope was passed orally through the length of the esophagus and into the area of the gastrojejunostomy. No retained food or fluid was noted. The patient was noted to have a moderate degree of stricturing with 1 cm scope not quite being able to be passed through the anastomosis. The amount of mucosal inflammation was quite a bit less than previously seen. The gastrointestinal balloon catheter was centered across the anastomosis and inflated to 36- Danish size. This was held in position for 1 minute, after which the balloon catheter was deflated and withdrawn. The scope could easily be passed through the anastomosis. No complications were noted, and the patient was taken to the recovery room in satisfactory condition. Given the patient's logistical issues, as well as the desire to avoid problems with getting behind in terms of hydration and such, the patient will be scheduled for a followup endoscopy on 07/31/2017. Demetris Granger MD /[id number]
== END 2017-07-19 12:30 | disposition home or self-care (01) ==
LOC: JP.SDS 07:58
PROVIDERS: ATTEND Surgery
DX: K91.89 Other postprocedural complications and disorders of digestive system (principal); E66.01 Morbid (severe) obesity due to excess calories; Z88.0 Allergy status to penicillin; Z88.1 Allergy status to other antibiotic agents; Z88.2 Allergy status to sulfonamides; Z88.8 Allergy status to other drugs, medicaments and biological substances; Z91.040 Latex allergy status; Z91.018 Allergy to other foods; J30.1 Allergic rhinitis due to pollen
CPT/HCPCS: 36415; 80053; 85027; 85610; J2250; J2704; J3010; J3411; J3420; J7120

== ENCOUNTER 2017-07-27 08:03 | Day surgery (SDC) | payer MEDICAID ==
[~2017-07-27 08:03] MED LIST: Cyanocobalamin (Vitamin B12) 1,000 MCG/ML SDV IM ONE; Lactated Ringers 1,000 ML IV ONE
[2017-07-27] MEDS ORDERED: Glycopyrrolate 0.2 MG/ML 2 ML SYRINGE IVPUSH ONE (08:30)
[2017-07-27] MEDS ORDERED: MVI, Adult with Vitamin K 10 ML, Thiamine 200 MG, Chromium/Copper/Mang/Selen/Zn 1 ML in... IV ONE ×4 (08:45)
[2017-07-27] MEDS ORDERED: fentaNYL 100 MCG/2 ML SDV ONE (10:41)
[2017-07-27] MEDS ORDERED: Propofol 200 MG/20 ML SDV ONE (10:41)
[2017-07-27] MEDS ORDERED: Midazolam 1 MG/ML 2 ML SDV ONE (10:41)
--- NOTE | 2017-08-01 02:57 | OR ---
DATE OF PROCEDURE: 07/27/2017 PREOPERATIVE DIAGNOSIS: Stricture at gastrojejunostomy. POSTOPERATIVE DIAGNOSIS: Stricture at gastrojejunostomy. OPERATIVE PROCEDURE: Upper GI endoscopy with dilation of gastrojejunostomy (49263). ANESTHESIA: IV sedation. INDICATION FOR PROCEDURE: This is a 37-year-old presenting with some recurrent stricturing at her gastrojejunostomy. Plan is to proceed with upper GI endoscopy with dilation as indicated. Potential risks, including bleeding and perforation were discussed, and the patient wishes to proceed. DETAILS OF PROCEDURE: The patient was taken to the operating room and placed in a left lateral decubitus position. IV sedation was administered after which the upper GI endoscope was passed orally through the length of the esophagus and into the gastric pouch. The patient was noted to have a moderate stricture at the gastrojejunostomy. Overall, the degree of stricturing and the amount of inflammation was less than previously noted. Bard gastrointestinal catheter was centered across the anastomosis and inflated to 36-[place]ian size. This was held in position for 1 minute after which the balloon catheter was deflated and withdrawn. The scope was easily passed through the anastomosis. No complications were noted and the patient was taken to the recovery room in satisfactory condition. Demetris Granger MD /[id number]
== END 2017-07-27 13:02 | disposition home or self-care (01) ==
LOC: JP.SDS 08:03
PROVIDERS: ATTEND Surgery
DX: K91.89 Other postprocedural complications and disorders of digestive system (principal); G47.33 Obstructive sleep apnea (adult) (pediatric); K21.9 Gastro-esophageal reflux disease without esophagitis; F32.9 Major depressive disorder, single episode, unspecified; F41.9 Anxiety disorder, unspecified; Z88.0 Allergy status to penicillin; Z88.1 Allergy status to other antibiotic agents; Z88.2 Allergy status to sulfonamides; Z88.8 Allergy status to other drugs, medicaments and biological substances; Z91.040 Latex allergy status; Z91.018 Allergy to other foods; J30.1 Allergic rhinitis due to pollen
CPT/HCPCS: 43245; 81025; J2250; J2704; J3010; J3411; J3420; J7120

== ENCOUNTER 2017-08-06 07:52 | Day surgery (SDC) | payer MEDICAID ==
[~2017-08-06 07:52] MED LIST changes: -Cyanocobalamin (Vitamin B12) 1,000 MCG/ML SDV IM ONE; -Lactated Ringers 1,000 ML IV ONE; +Lactated Ringers 1,000 ML IV SCH
[2017-08-06] MEDS ORDERED: Cyanocobalamin (Vitamin B12) 1,000 MCG/ML SDV IM ONE (08:00)
[2017-08-06] MEDS ORDERED: Propofol 200 MG/20 ML SDV ONE ×2 (08:12→09:10)
[2017-08-06] MEDS ORDERED: Midazolam 1 MG/ML 2 ML SDV ONE (08:12)
[2017-08-06] MEDS ORDERED: fentaNYL 100 MCG/2 ML SDV ONE (08:12)
[2017-08-06] MEDS ORDERED: MVI, Adult with Vitamin K 10 ML, Thiamine 200 MG, Chromium/Copper/Mang/Selen/Zn 1 ML in... IV ONE ×4 (08:30)
[2017-08-06] MEDS ORDERED: Glycopyrrolate 0.2 MG/ML 2 ML SYRINGE IVPUSH ONE (08:30)
[2017-08-06] MEDS ORDERED: Warfarin 5 MG Tab PO ONE (11:00)
--- NOTE | 2017-08-13 12:07 | OR ---
DATE OF PROCEDURE: 08/06/2017 PREOPERATIVE DIAGNOSIS: Stricture at gastrojejunostomy. POSTOPERATIVE DIAGNOSIS: Stricture at gastrojejunostomy. PROCEDURE: Upper GI endoscopy with dilation of gastrojejunostomy (42335). ANESTHESIA: IV sedation. INDICATIONS FOR PROCEDURE: Status post María-en-Y gastric bypass, presenting with some recurrent stricturing at her gastrojejunostomy. Plan is to proceed with upper GI endoscopy with dilation as indicated. Potential risks including bleeding and perforation were discussed, and the patient wishes to proceed. DETAILS OF PROCEDURE: The patient was taken to the operating room and placed in a left lateral decubitus position. IV sedation was administered, after which the upper GI endoscope was passed orally through the length of the esophagus and into the gastric pouch. No retained food or fluid was noted. The patient was noted to have a moderate stricture at her gastrojejunostomy. This was less inflamed and less tight than previously noted. Bard gastrointestinal balloon catheter was then centered across the anastomosis, inflated to 36- Czech size. This was held in position for 1 minute, after which the balloon catheter was deflated and withdrawn. The scope was easily passed through the anastomosis. No complications were noted and the patient was taken to the recovery room in satisfactory condition. Demetris Granger MD /[id number]
== END 2017-08-06 12:19 | disposition home or self-care (01) ==
LOC: JP.SDS 07:52
PROVIDERS: ATTEND Surgery
DX: K91.89 Other postprocedural complications and disorders of digestive system (principal); Z98.84 Bariatric surgery status
CPT/HCPCS: 36415; 43245; 85610; A9270; J2250; J2704; J3010; J3411; J3420; J7120

== ENCOUNTER 2017-08-28 08:31 | Day surgery (SDC) | payer MEDICAID ==
[2017-08-28] MEDS ORDERED: fentaNYL 100 MCG/2 ML SDV ONE (09:07)
[2017-08-28] MEDS ORDERED: Propofol 200 MG/20 ML SDV ONE (09:07)
[2017-08-28] MEDS ORDERED: Midazolam 1 MG/ML 2 ML SDV ONE (09:07)
[2017-08-28] MEDS ORDERED: Lactated Ringers 1,000 ML IV ONE (09:30)
[2017-08-28] MEDS ORDERED: Cyanocobalamin (Vitamin B12) 1,000 MCG/ML SDV IM ONE (09:30)
[2017-08-28] MEDS ORDERED: Glycopyrrolate 0.2 MG/ML 2 ML SDV IVPUSH ONE (10:00)
[2017-08-28] MEDS ORDERED: MVI, Adult with Vitamin K 10 ML, Thiamine 100 MG, Chromium/Copper/Mang/Selen/Zn 1 ML in... IV ONE ×4 (10:30)
[2017-08-28] MEDS ORDERED: MVI, Adult with Vitamin K 10 ML, Thiamine 200 MG, Chromium/Copper/Mang/Selen/Zn 1 ML in... IV ONE ×4 (10:30)
--- NOTE | 2017-09-01 21:03 | OR ---
DATE OF PROCEDURE: 08/28/2017 PREOPERATIVE DIAGNOSIS: Strictured esophagojejunostomy. POSTOPERATIVE DIAGNOSES: 1. Mild stricture esophagojejunostomy. 2. Foreign body (ingested meat) located above the esophagojejunostomy. PROCEDURE: Upper GI endoscopy with, 1. Dilation of esophagojejunostomy (60898). 2. Removal of foreign body from distal esophagus (92451). ANESTHESIA: IV sedation. INDICATIONS FOR PROCEDURE: The patient presents with symptoms of stricturing at her esophagojejunostomy. Plan is to proceed with upper GI endoscopy with dilation as indicated. Potential risks including bleeding and perforation were discussed, and the patient wishes to proceed. DETAILS OF PROCEDURE: The patient was taken to the operating room and placed in a left lateral decubitus position. IV sedation was administered, after which the upper GI endoscope was passed orally through the length of the esophagus. At the end of the esophagus, the patient was noted to have an area of meat. This appeared to be acting more or less as a ball valve at the anastomosis, which was somewhat strictured. There was relatively small amount of inflammation. At this point, a Bard gastrointestinal catheter was then centered across the anastomosis, and inflated to 36-Luxembourger size. We then opted to dilate this to a 45-Luxembourger dilator as well and at that point the meat within the esophagus was retrieved with an endoscopic basket. The anastomosis appeared to be intact and the dilation adequate, and the procedure concluded. The patient was taken to the recovery room in satisfactory condition. Demetris Granger MD /[id number]
== END 2017-08-28 14:14 | disposition home or self-care (01) ==
LOC: JP.SDS 08:31
PROVIDERS: ATTEND Surgery
DX: K91.89 Other postprocedural complications and disorders of digestive system (principal); T18.128A Food in esophagus causing other injury, initial encounter; G47.33 Obstructive sleep apnea (adult) (pediatric); Z88.0 Allergy status to penicillin; Z88.1 Allergy status to other antibiotic agents; Z88.2 Allergy status to sulfonamides; Z88.8 Allergy status to other drugs, medicaments and biological substances; Z91.018 Allergy to other foods; Z91.09 Other allergy status, other than to drugs and biological substances
CPT/HCPCS: J2250; J2704; J3010; J3411; J3420; J7120

== ENCOUNTER → 2017-10-11 | Day surgery (SDC) | payer MEDICAID ==
[~2017-10-11] MED LIST changes: +Cyanocobalamin (Vitamin B12) 1,000 MCG/ML SDV IM ONE; +Lactated Ringers 1,000 ML IV ONE; -Lactated Ringers 1,000 ML IV SCH; +MVI, Adult with Vitamin K 10 ML, Thiamine 200 MG, Chromium/Copper/Mang/Selen/Zn 1 ML in... IV ONE; +Midazolam 1 MG/ML 2 ML SDV ONE; +Propofol 200 MG/20 ML SDV ONE; +fentaNYL 100 MCG/2 ML SDV ONE
--- NOTE | 2017-10-24 09:58 | OR ---
DATE OF PROCEDURE: 10/11/2017 PREOPERATIVE DIAGNOSIS: Probable stricture at gastrojejunostomy. POSTOPERATIVE DIAGNOSIS: Tight stricture at gastrojejunostomy. OPERATIVE PROCEDURE: Upper GI endoscopy with dilation gastrojejunostomy (67258). ANESTHESIA: IV sedation. INDICATION FOR PROCEDURE: The patient is status post open María-en-Y gastric bypass on 05/21/2017. She had dilation of stricture in 08/2017 and now presents with symptoms of stricturing once again. Plan is to proceed with upper GI endoscopy with dilation as indicated. Potential risks including bleeding and perforation were discussed, and the patient wishes to proceed. DETAILS OF PROCEDURE: The patient was taken to the operating room and placed in the left lateral decubitus position. IV sedation was administered, after which the upper GI endoscope was passed orally through the length of the esophagus and into the gastric pouch. No retained food or fluid was noted. The patient was noted to have a fairly tight stricture at the gastrojejunostomy. This was not associated with much in the way of gross inflammation currently. Gastrointestinal catheter was then centered across the anastomosis and inflated to 36-Gu[place]ian size. This helped position at which time balloon catheter was deflated and withdrawn. The scope could then easily pass through the anastomosis. No complications were noted. The scope was then withdrawn and the procedure was concluded. The patient was taken to the recovery room in satisfactory condition. Demetris Granger MD /[id number]
== END ==
LOC: JP.SDS 08:53
PROVIDERS: ATTEND Surgery
DX: K91.89 Other postprocedural complications and disorders of digestive system (principal); E66.01 Morbid (severe) obesity due to excess calories; K21.9 Gastro-esophageal reflux disease without esophagitis; G47.33 Obstructive sleep apnea (adult) (pediatric); Z98.84 Bariatric surgery status
CPT/HCPCS: 43245; J2250; J2704; J3010; J3411; J3420; J7042; J7120